=== PATIENT | female | born 1955 | race American Indian/Alaskan Native ===

== ENCOUNTER 2018-01-07 16:57 | Inpatient (IN) ==
[2018-01-07] MEDS ORDERED: methylPREDNISolone 125 MG/2 ML VIAL IVP ONE (17:04)
[2018-01-07] MEDS ORDERED: Ipratropium/Albuterol Neb 3 ML IH ONE (17:04)
--- NOTE | 2018-01-07 17:09 | Emergency Department Note ---
Disposition Clinical Impression: Acute exacerbation of chronic obstructive airways disease Disposition: Admitted As Inpatient Condition: Fair Referrals: Jourdan Nava MD [Primary Care Provider] - Forms: ED Satisfaction Letter Time of Disposition: 18:44 SOB HPI - General Chief Complaint: ED Shortness of Breath/Dyspnea Stated Complaint: TANNER Time Seen by Provider: 01/07/18 17:04 Source: patient, EMS Limitations: no limitations Nursing Notes Reviewed: Yes Vital Signs Reviewed: Yes - History of Present Illness Mrs. Montana presents from her PCP's office (Dr. Nava) for PCP concerns of pneumonia and patient concerns of worsening dyspnea. Diagnosed with pneumonia 2 -3 days ago, managed with outpatient antibiotics. Her dyspnea has worsened since, is not improved with her home inhalers. Associated with nausea, vomiting with PO intake, subjective fever. Dry cough with isolated left sharp chest pain only with cough. Dyspnea at rest, worse with light exertion. Generalized fatigue and weakness. PMH: CAD with [place] without stent, CVA. On aspirin and anticoagulant unknown to her. HTN, HLD, CHF of unknown type. DM II on oral antihyperglycemic. COPD on 2L supplemental O2 at night. Habits: Current everyday smoker. ROS: Pos: as above Neg: measured fever, chest pain unrelated to cough, diaphoresis, unusual back pain, abdominal pain, slurring of speech, facial droop, unilateral weakness/ tingling. - Related Data Home Medications Medication Instructions Recorded Confirmed Albuterol Sulfate [Proair HFA] 2 puff IH Q6HR PRN 05/17/15 01/07/18 Amlodipine [Norvasc] 5 mg PO DAILY 05/17/15 01/07/18 Aspirin Enteric Coated [Aspirin EC] 81 mg PO DAILY 05/17/15 01/07/18 Citalopram [CeleXA] 20 mg PO DAILY 05/17/15 01/07/18 Fluticasone Propionate Nasal 1 spray NS DAILY 05/17/15 01/07/18 [Flonase] Isosorbide MONOnitrate (24 HR) 60 mg PO DAILY 05/17/15 01/07/18 [Imdur] Metoprolol [Lopressor] 25 mg PO BID 05/17/15 01/07/18 Montelukast [Singulair] 10 mg PO DAILY 05/17/15 01/07/18 Potassium Chloride 20 meq PO BID 05/17/15 01/07/18 Ranitidine HCl [Zantac] 150 mg PO BID 05/17/15 01/07/18 Tiotropium [Spiriva] 18 mcg IH 0700 05/17/15 01/07/18 TraMADol [Ultram] 50 mg PO Q4HR PRN 05/17/15 01/07/18 TraZODone 50 mg PO HS 05/17/15 01/07/18 hydroCHLOROthiazide 50 mg PO DAILY 05/17/15 01/07/18 [Hydrochlorothiazide] Albuterol Neb [Proventil Neb] 2.5 mg IH Q4HR 01/07/18 01/07/18 Alogliptin Benzoate [Alogliptin] 12.5 mg PO DAILY 01/07/18 01/07/18 Budesonide/Formoterol 160/4.5 1 puff IH BIDR 01/07/18 01/07/18 [Symbicort 160/4.5] Nitroglycerin [Nitrostat] 0.4 mg SL Q5MIN 01/07/18 01/07/18 Pantoprazole Sodium [Protonix] 40 mg PO DAILY 01/07/18 01/07/18 Rosuvastatin [Crestor] 20 mg PO HS 01/07/18 01/07/18 levoFLOXacin [Levofloxacin] 500 mg PO DAILY 01/07/18 01/07/18 predniSONE [PredniSONE] 20 mg PO BID 01/07/18 01/07/18 Allergies Allergy/AdvReac Type Severity Reaction Status Date / Time Amoxicillin [From Augmentin] Allergy Vomiting Verified 01/07/18 17:05 Cefaclor [From Ceclor] Allergy Vomiting Verified 01/07/18 17:05 clavulanic acid Allergy Vomiting Verified 01/07/18 17:05 [From Augmentin] codeine Allergy Hives Verified 01/07/18 17:05 Penicillins Allergy Vomiting Verified 01/07/18 17:06 sulfamethoxazole Allergy Vomiting Verified 01/07/18 17:05 [From Bactrim] trimethoprim [From Bactrim] Allergy Vomiting Verified 01/07/18 17:05 Past Medical History - Past Medical History Medical history: Reports: asthma, CHF, COPD, CVA, hyperlipidemia, hypertension, myocardial infarction, TIA Surgical history: Reports: Psychiatric history: Reports: depression - Social History Smoking Status: Current every day smoker Smokeless Tobacco Status: No Alcohol use: Reports: none Drug use: Reports: none Physical Exam Vital Signs Reviewed General: Patient is alert, oriented, and in mild respiratory distress - accessory muscle use, 3-4 word conversational dyspnea. Head: atraumatic, normocephalic Eye: normal appearance, no scleral icterus, no conjunctival injection ENT: mucous membranes tachy, normal external ear exam Neck: normal inspection, trachea midline, full ROM Chest: normal inspection, symmetric chest rise Respiratory: Poor respiratory effort. Prolonged respiratory phase. Bilateral breath sounds are equal with diffuse coarse expiratory wheeze; no crackles or rhonchi. Cardiovascular: Regular rate and rhythm. No clicks, rubs, gallops, or murmors. Normal heart sounds. Abdomen: Obese. Bowel sounds present normoactive x-4 quadrants. Abdomen is soft , nondistended, and nontender. No guarding or rebound. Musculoskeletal: Spontaneously moving all extremities. Skin: warm, dry, intact. Neuro: Alert and oriented x4. Sensation light touch intact. Psych: Patient's affect is appropriate for situation. - General Limitations: no limitations General appearance: alert, in no apparent distress Course Course Narrative: Patient is on PO levaquin for outpatient pneumonia. Despite patient's respiratory distress, she is saturing well on room air. CXR and physical exam not concerning for pneumonia. Lab work, CXR, and physical exam not concerning for exacerbation of CHF. Working diagnosis is acute exacerbation COPD. Will provide IV steroids, duonebs , and empiric antibiotics. Patient's chart shows a vomiting reaction to ceclor. Patient notes 'that was a long time ago' but does remember she did not have any breathing, and no rash. She is agreeable to cefepime. After 9mg duonegs, patient's work of breathing has improved. She subjectively feels better. Lung sounds re-demonstrate diffuse coarse wheeze. I discussed the above with the patient and family at bedside. She is agreeable to admission. Discussed the patient with the admitting hospitalis, Erik, who agrees to accept the patient for continued evaluation and management. Chest X-Ray 01/07/18 17:05 IMPRESSION: 1. No acute cardiopulmonary disease. D/ / 01/07/2018 17:34:38 Blaze Marquis MD / [email or web address] Interpreting Provider: Blaze Marquis MD Vital Signs Temperature 98.8 F 01/07/18 16:59 Pulse Rate 71 01/07/18 16:59 Respiratory Rate 20 01/07/18 16:59 Blood Pressure 158/93 01/07/18 16:59 O2 Sat by Pulse Oximetry 94 01/07/18 16:59 Temperature 98.8 F 01/07/18 16:59 Pulse Rate 81 01/07/18 18:02 Respiratory Rate 18 01/07/18 18:02 Blood Pressure 158/93 01/07/18 18:02 O2 Sat by Pulse Oximetry 100 01/07/18 18:02 Oxygen Delivery Oxygen Delivery Nasal Cannula Shortness of Breath/Dyspnea - Lab Data Result diagrams: 01/07/18 17:12 01/07/18 17:12 Lab Results 01/07/18 01/07/18 01/07/18 Range/Units 17:12 17:12 17:12 WBC 7.2 (4.3-11.1) K/mcL RBC 4.88 (3.82-4.97) M/mcL Hgb 15.3 (11.5-15.4) g/dL Hct 46.2 H (35.3-44.9) % MCV 94.7 (83.0-100.0) fL MCH 31.4 (28.0-33.3) pg MCHC 33.1 (31.6-35.5) g/dL RDW 14.2 (11.5-14.5) % Plt Count 121 L (140-400) K/mcL MPV 10.6 (9.4-12.4) fL Immature Gran % 1.0 (0-4) % Seg Neutrophils % 54.8 % Lymphocytes % 34.3 % Monocytes % 9.5 % Eosinophils % 0.0 % Basophils % 0.4 % Neutrophils # 4.0 (1.6-8.9) K/mcL Lymphocytes # 2.5 (0.6-4.6) K/mcL Monocytes # 0.7 (0.0-1.3) K/mcL Eosinophils # 0.0 (0.0-0.6) K/mcL Basophils # 0.0 (0.0-0.2) K/mcL Reactive Lymphocytes Present A (Not Present) Platelet Estimate Slight Decrease L (Normal) Sodium 141 (136-145) mEq/L Potassium 3.4 L (3.5-5.1) mEq/L Chloride 102 (98-107) mEq/L Carbon Dioxide 33 H (23-29) mEq/L BUN 24 H (8-23) mg/dL Creatinine 1.07 (0.60-1.20) mg/dL Est GFR ( Amer) > 60 (> 60) Est GFR (Non-Af Amer) 52 L (> 60) BUN/Creatinine Ratio 22 (6-26) Glucose 174 H (70-105) mg/dL Calculated Osmolality 300 (280-300) Lactic Acid 1.8 (0.5-2.2) mmol/L Calcium 10.9 H (8.6-10.3) mg/dL Troponin I < 0.03 (< 0.04) ng/mL B-Natriuretic Peptide (Less than 100) pg/mL 01/07/18 Range/Units 17:12 WBC (4.3-11.1) K/mcL RBC (3.82-4.97) M/mcL Hgb (11.5-15.4) g/dL Hct (35.3-44.9) % MCV (83.0-100.0) fL MCH (28.0-33.3) pg MCHC (31.6-35.5) g/dL RDW (11.5-14.5) % Plt Count (140-400) K/mcL MPV (9.4-12.4) fL Immature Gran % (0-4) % Seg Neutrophils % % Lymphocytes % % Monocytes % % Eosinophils % % Basophils % % Neutrophils # (1.6-8.9) K/mcL Lymphocytes # (0.6-4.6) K/mcL Monocytes # (0.0-1.3) K/mcL Eosinophils # (0.0-0.6) K/mcL Basophils # (0.0-0.2) K/mcL Reactive Lymphocytes (Not Present) Platelet Estimate (Normal) Sodium (136-145) mEq/L Potassium (3.5-5.1) mEq/L Chloride (98-107) mEq/L Carbon Dioxide (23-29) mEq/L BUN (8-23) mg/dL Creatinine (0.60-1.20) mg/dL Est GFR ( Amer) (> 60) Est GFR (Non-Af Amer) (> 60) BUN/Creatinine Ratio (6-26) Glucose (70-105) mg/dL Calculated Osmolality (280-300) Lactic Acid (0.5-2.2) mmol/L Calcium (8.6-10.3) mg/dL Troponin I (< 0.04) ng/mL B-Natriuretic Peptide 103 H (Less than 100) pg/mL
[2018-01-07 17:29] LABS: Basophils % 0.4 %; Hematocrit 46.2 % (35.3-44.9); Hemoglobin 15.3 g/dL (11.5-15.4); Lymphocytes # 2.5 K/mcL (0.6-4.6); Lymphocytes % 34.3 %; Mean Corpuscular HGB Conc 33.1 g/dL (31.6-35.5); Mean Corpuscular Hemoglobin 31.4 pg (28.0-33.3); Mean Corpuscular Volume 94.7 fL (83.0-100.0); Mean Platelet Volume 10.6 fL (9.4-12.4); Monocytes # 0.7 K/mcL (0.0-1.3); Monocytes % 9.5 %; Platelet Count 121 K/mcL (140-400); Red Blood Count 4.88 M/mcL (3.82-4.97); Red Cell Distribution Width 14.2 % (11.5-14.5); Segmented Neutrophils % 54.8 %
--- NOTE | 2018-01-07 17:39 | Emergency Department Note ---
Disposition Clinical Impression: Acute exacerbation of chronic obstructive airways disease Disposition: Admitted As Inpatient Condition: Fair General Adult HPI - General Chief complaint: ED Shortness of Breath/Dyspnea Stated complaint: TANNER Time Seen by Provider: 01/07/18 17:04 Source: patient, EMS Limitations: no limitations - History of Present Illness Pain Scale: 0 - Related Data Home Medications Medication Instructions Recorded Confirmed Albuterol Sulfate [Proair HFA] 2 puff IH Q6HR PRN 05/17/15 01/07/18 Amlodipine [Norvasc] 5 mg PO DAILY 05/17/15 01/07/18 Aspirin Enteric Coated [Aspirin EC] 81 mg PO DAILY 05/17/15 01/07/18 Citalopram [CeleXA] 20 mg PO DAILY 05/17/15 01/07/18 Fluticasone Propionate Nasal 1 spray NS DAILY 05/17/15 01/07/18 [Flonase] Isosorbide MONOnitrate (24 HR) 60 mg PO DAILY 05/17/15 01/07/18 [Imdur] Metoprolol [Lopressor] 25 mg PO BID 05/17/15 01/07/18 Montelukast [Singulair] 10 mg PO DAILY 05/17/15 01/07/18 Potassium Chloride 20 meq PO BID 05/17/15 01/07/18 Ranitidine HCl [Zantac] 150 mg PO BID 05/17/15 01/07/18 Tiotropium [Spiriva] 18 mcg IH 0700 05/17/15 01/07/18 TraMADol [Ultram] 50 mg PO Q4HR PRN 05/17/15 01/07/18 TraZODone 50 mg PO HS 05/17/15 01/07/18 hydroCHLOROthiazide 50 mg PO DAILY 05/17/15 01/07/18 [Hydrochlorothiazide] Albuterol Neb [Proventil Neb] 2.5 mg IH Q4HR 01/07/18 01/07/18 Alogliptin Benzoate [Alogliptin] 12.5 mg PO DAILY 01/07/18 01/07/18 Budesonide/Formoterol 160/4.5 1 puff IH BIDR 01/07/18 01/07/18 [Symbicort 160/4.5] Nitroglycerin [Nitrostat] 0.4 mg SL Q5MIN 01/07/18 01/07/18 Pantoprazole Sodium [Protonix] 40 mg PO DAILY 01/07/18 01/07/18 Rosuvastatin [Crestor] 20 mg PO HS 01/07/18 01/07/18 levoFLOXacin [Levofloxacin] 500 mg PO DAILY 01/07/18 01/07/18 predniSONE [PredniSONE] 20 mg PO BID 01/07/18 01/07/18 Allergies Allergy/AdvReac Type Severity Reaction Status Date / Time Amoxicillin [From Augmentin] Allergy Vomiting Verified 01/07/18 17:05 Cefaclor [From Ceclor] Allergy Vomiting Verified 01/07/18 17:05 clavulanic acid Allergy Vomiting Verified 01/07/18 17:05 [From Augmentin] codeine Allergy Hives Verified 01/07/18 17:05 Penicillins Allergy Vomiting Verified 01/07/18 17:06 sulfamethoxazole Allergy Vomiting Verified 01/07/18 17:05 [From Bactrim] trimethoprim [From Bactrim] Allergy Vomiting Verified 01/07/18 17:05 Past Medical History - Past Medical History Medical history: Reports: asthma, CHF, COPD, CVA, hyperlipidemia, hypertension, myocardial infarction, TIA Surgical history: Reports: Psychiatric history: Reports: depression - Social History Smoking Status: Current every day smoker Smokeless Tobacco Status: No Alcohol use: Reports: none Drug use: Reports: none Physical Exam - General Limitations: no limitations General appearance: alert, in no apparent distress Course Vital Signs Temperature 98.8 F 01/07/18 16:59 Pulse Rate 71 01/07/18 16:59 Respiratory Rate 20 01/07/18 16:59 Blood Pressure 158/93 01/07/18 16:59 O2 Sat by Pulse Oximetry 94 01/07/18 16:59 Temperature 98.8 F 01/07/18 16:59 Pulse Rate 71 01/07/18 19:56 Respiratory Rate 18 01/07/18 19:56 Blood Pressure 158/93 01/07/18 19:56 O2 Sat by Pulse Oximetry 97 01/07/18 19:56 Oxygen Delivery Oxygen Delivery Room Air Medical Decision Making - Lab Data Result diagrams: 01/07/18 17:12 01/07/18 17:12 Lab Results 01/07/18 01/07/18 01/07/18 Range/Units 17:12 17:12 17:12 WBC 7.2 (4.3-11.1) K/mcL RBC 4.88 (3.82-4.97) M/mcL Hgb 15.3 (11.5-15.4) g/dL Hct 46.2 H (35.3-44.9) % MCV 94.7 (83.0-100.0) fL MCH 31.4 (28.0-33.3) pg MCHC 33.1 (31.6-35.5) g/dL RDW 14.2 (11.5-14.5) % Plt Count 121 L (140-400) K/mcL MPV 10.6 (9.4-12.4) fL Immature Gran % 1.0 (0-4) % Seg Neutrophils % 54.8 % Lymphocytes % 34.3 % Monocytes % 9.5 % Eosinophils % 0.0 % Basophils % 0.4 % Neutrophils # 4.0 (1.6-8.9) K/mcL Lymphocytes # 2.5 (0.6-4.6) K/mcL Monocytes # 0.7 (0.0-1.3) K/mcL Eosinophils # 0.0 (0.0-0.6) K/mcL Basophils # 0.0 (0.0-0.2) K/mcL Reactive Lymphocytes Present A (Not Present) Platelet Estimate Slight Decrease L (Normal) Sodium 141 (136-145) mEq/L Potassium 3.4 L (3.5-5.1) mEq/L Chloride 102 (98-107) mEq/L Carbon Dioxide 33 H (23-29) mEq/L BUN 24 H (8-23) mg/dL Creatinine 1.07 (0.60-1.20) mg/dL Est GFR ( Amer) > 60 (> 60) Est GFR (Non-Af Amer) 52 L (> 60) BUN/Creatinine Ratio 22 (6-26) Glucose 174 H (70-105) mg/dL Calculated Osmolality 300 (280-300) Lactic Acid 1.8 (0.5-2.2) mmol/L Calcium 10.9 H (8.6-10.3) mg/dL Troponin I < 0.03 (< 0.04) ng/mL B-Natriuretic Peptide (Less than 100) pg/mL 04/19/18 Range/Units 17:12 WBC (4.3-11.1) K/mcL RBC (3.82-4.97) M/mcL Hgb (11.5-15.4) g/dL Hct (35.3-44.9) % MCV (83.0-100.0) fL MCH (28.0-33.3) pg MCHC (31.6-35.5) g/dL RDW (11.5-14.5) % Plt Count (140-400) K/mcL MPV (9.4-12.4) fL Immature Gran % (0-4) % Seg Neutrophils % % Lymphocytes % % Monocytes % % Eosinophils % % Basophils % % Neutrophils # (1.6-8.9) K/mcL Lymphocytes # (0.6-4.6) K/mcL Monocytes # (0.0-1.3) K/mcL Eosinophils # (0.0-0.6) K/mcL Basophils # (0.0-0.2) K/mcL Reactive Lymphocytes (Not Present) Platelet Estimate (Normal) Sodium (136-145) mEq/L Potassium (3.5-5.1) mEq/L Chloride (98-107) mEq/L Carbon Dioxide (23-29) mEq/L BUN (8-23) mg/dL Creatinine (0.60-1.20) mg/dL Est GFR ( Amer) (> 60) Est GFR (Non-Af Amer) (> 60) BUN/Creatinine Ratio (6-26) Glucose (70-105) mg/dL Calculated Osmolality (280-300) Lactic Acid (0.5-2.2) mmol/L Calcium (8.6-10.3) mg/dL Troponin I (< 0.04) ng/mL B-Natriuretic Peptide 103 H (Less than 100) pg/mL Attestation Statement - Attestation Attestation: I examined this patient and my medical decision-making was reviewed with the PANEL SEWER/PA/Advanced Practice Nurse/Resident Physician. I agree with the documented findings, disposition and treatment plan as described except to the extent set forth below. The patient's has shortness of breath with a history of COPD and she is still smoking and does use home oxygen but only at night and on exam she is to Neck and she also does have bilateral wheezing. Chest x-ray as well as labs have been done. Patient will be treated with breathing treatment DuoNeb, IV steroids and antibiotics and be admitted to the hospital. I did speak with her as well as the stepson and stepdaughter 173 I did review the patient's EKG which shows normal sinus rhythm with rate of [address] change but no evidence of arrhythmia. This is not atrial fibrillation. The prominent P waves are consistent with COPD. 184
[2018-01-07 17:41] LABS: Platelet Estimate Slight Decrease (Normal); Reactive Lymphocytes Present (Not Present)
[2018-01-07 17:50] LABS: BUN/Creatinine Ratio 22 (6-26); Blood Urea Nitrogen 24 mg/dL (8-23); Calcium 10.9 mg/dL (8.6-10.3); Carbon Dioxide 33 mEq/L (23-29); Chloride 102 mEq/L (98-107); Glucose 174 mg/dL (70-105); Osmolality,Calculated 300 (280-300); Potassium 3.4 mEq/L (3.5-5.1); Sodium 141 mEq/L (136-145); Troponin I < 0.03 ng/mL (< 0.04); eGFR For African Americans > 60 (> 60); eGFR For Non-African Americans 52 (> 60)
[2018-01-07] MEDS ORDERED: Cefepime HCl 2,000 MG in Water for inj. (sterile) 20 ML 20 ML IVP STA (18:44)
[2018-01-07] MEDS ORDERED: Naloxone 0.4 MG/ML INJ IVP PRN (21:17)
[2018-01-07] MEDS ORDERED: traMADol 50 MG TABLET PO PRN (21:22)
--- NOTE | 2018-01-07 21:29 | Internal Med History&Physical ---
Date of Encounter: 01/07/18 Time of Encounter: 21:17 Internal Medicine - H&P: HPI Admitted From: Home Plans for Post Hospital Care: Home History of present illness: Ms. Montana is a 62 year old female history of COPD on 2 L home oxygen in the night distal pack to a smoker though trying to cut down, diabetes mellitus, hypertension came to emergency room with worsening of wheezing and shortness of breath along with cough for last 1-2 weeks. Patient was seen by primary care physician restarted orally steroid and antibiotics but failed the treatment. In emergency room initial treatment was given with loading dose of steroid and breathing treatment restarted oxygen by nasal cannula. Chest x-ray with no acute finding. ER physician called on-call hospitalists for the admission the diagnosis of COPD exacerbation with failed outpatient treatment. Nation also complained of subjective fever, chills, nausea since Thursday. She also had few episodes of diarrhea today. She denies chest pain headache dizziness abdominal pain urinary or bowel complaint. Past Med Surg Social Fam HX - Past Medical History Medical history: asthma, CHF, COPD, CVA, hyperlipidemia, hypertension, myocardial infarction, TIA Psychiatric history: depression - Past Surgical History Surgical History: - Social History Smoking Status: Current every day smoker Smokeless Tobacco Status: No Alcohol use: none Drug use: none - Family History Mother Living Status: Still Living Hx Family Respiratory Disorders: Yes Internal Medicine - H&P: Meds Albuterol Sulfate [Proair HFA] 2 puff IH Q6HR PRN 05/17/15 [History] Amlodipine [Norvasc] 5 mg PO DAILY 05/17/15 [History] Aspirin Enteric Coated [Aspirin EC] 81 mg PO DAILY 05/17/15 [History] Citalopram [CeleXA] 20 mg PO DAILY 05/17/15 [History] Fluticasone Propionate Nasal [Flonase] 1 spray NS DAILY 05/17/15 [History] Isosorbide MONOnitrate (24 HR) [Imdur] 60 mg PO DAILY 05/17/15 [History] Metoprolol [Lopressor] 25 mg PO BID 05/17/15 [History] Montelukast [Singulair] 10 mg PO DAILY 05/17/15 [History] Potassium Chloride 20 meq PO BID 05/17/15 [History] Ranitidine HCl [Zantac] 150 mg PO BID 05/17/15 [History] Tiotropium [Spiriva] 18 mcg IH 0700 05/17/15 [History] TraMADol [Ultram] 50 mg PO Q4HR PRN 05/17/15 [History] TraZODone 50 mg PO HS 05/17/15 [History] hydroCHLOROthiazide [Hydrochlorothiazide] 50 mg PO DAILY 05/17/15 [History] Albuterol Neb [Proventil Neb] 2.5 mg IH Q4HR 01/07/18 [History] Alogliptin Benzoate [Alogliptin] 12.5 mg PO DAILY 01/07/18 [History] Budesonide/Formoterol 160/4.5 [Symbicort 160/4.5] 1 puff IH BIDR 01/07/18 [ History] Nitroglycerin [Nitrostat] 0.4 mg SL Q5MIN 01/07/18 [History] Pantoprazole Sodium [Protonix] 40 mg PO DAILY 01/07/18 [History] Rosuvastatin [Crestor] 20 mg PO HS 01/07/18 [History] levoFLOXacin [Levofloxacin] 500 mg PO DAILY 01/07/18 [History] predniSONE [PredniSONE] 20 mg PO BID 01/07/18 [History] 3 Allergy/AdvReac Type Severity Reaction Status Date / Time Amoxicillin [From Augmentin] Allergy Vomiting Verified 01/07/18 17:05 Cefaclor [From Ceclor] Allergy Vomiting Verified 01/07/18 17:05 clavulanic acid Allergy Vomiting Verified 01/07/18 17:05 [From Augmentin] codeine Allergy Hives Verified 01/07/18 17:05 Penicillins Allergy Vomiting Verified 01/07/18 17:06 sulfamethoxazole Allergy Vomiting Verified 01/07/18 17:05 [From Bactrim] trimethoprim [From Bactrim] Allergy Vomiting Verified 01/07/18 17:05 All Systems PM: A 10-system review of systems was performed and is negative for pertinent findings except as documented above in the HPI. - Constitutional Vitals: Temp Pulse Resp BP Pulse Ox 98.0 F 71 18 138/82 95 01/07/18 20:29 01/07/18 20:29 01/07/18 20:29 01/07/18 20:29 01/07/18 20:29 Exam: General appearance: Mild distress due to shortness of breath, oxygen by nasal cannula, cannot complete the whole sentence easily, A&O X 3. Family at bedside Head exam: Atraumatic Eye exam: EOMI, PERRLA ENT exam: Moist oral mucosa Neck nontender, supple Respiratory exam: Bilateral expiratory wheezing Cardiovascular exam: Regular rate and rhythm, no systolic murmur Abdominal exam: Soft, nontender, nondistended, positive bowel sounds Extremities exam: No calf tenderness, no pedal edema Present: Skin-no rash, warm, dry, intact Neurological exam: Alert, awake, oriented 3, CN II-XII intact, no focal deficits. No facial droop. Normal speech. Normal gait. Internal Med - H&P Results - Labs CBC & Chem 7: 01/07/18 17:12 01/07/18 17:12 - Assessment and plan (1) Acute exacerbation of chronic obstructive airways disease Current Visit: Yes Status: Acute Assessment and plan: Failed outpatient treatment. Will start IV Solu-Medrol, IV antibiotic, oxygen supplementation, breathing treatment. Will consult take off worker if no improvement. Patient never had evaluation by take off worker, on OPD basis. (2) Diabetes mellitus Current Visit: Yes Status: Chronic Assessment and plan: Newly diagnosed as per patient. Accu-Chek and sliding scale. Diabetic diet. Qualifiers: Diabetes mellitus type: type 2 Diabetes mellitus long term care pharmacist insulin use: without long term care pharmacist use Qualified Code(s): E11.9 - Type 2 diabetes mellitus without complications (3) Hypertension Current Visit: Yes Status: Chronic Assessment and plan: Close monitoring. Continue home medicine. Qualifiers: Qualified Code(s): I10 - Essential (primary) hypertension (4) Hypercalcemia Current Visit: Yes Status: Acute Assessment and plan: Mild. no supplementation. gentle iv hydration. close monitoring. (5) DVT prophylaxis Current Visit: Yes Status: Acute Assessment and plan: SCDs - Time Spent With Patient Total time spent is greater than 50% in coordination of care (as documented) at patient's floor/unit and/or counseling patient: 25 - 35 minutes
[2018-01-07] MEDS ORDERED: Nitroglycerin 0.4 MG TAB.SUBL SL SCH (21:30)
[2018-01-07] MEDS ORDERED: Dextrose Gel 15 GM/37.5 ML TUBE PO PRN ×2 (21:37)
[2018-01-07] MEDS ORDERED: *HR* Dextrose 50 % in Water (Syg) 50 ML SYRINGE IVP PRN (21:37)
[2018-01-07] MEDS ORDERED: D5% in Water 1,000 ML IVC PRN (21:37)
[2018-01-07] MEDS: 0.9 % Sodium Chloride 1,000 ML IVC SCH (21:46)
[2018-01-07] MEDS ORDERED: Levofloxacin 500 MG/100 ML 500 MG/100 ML BAG IVPB ONE (22:00)
[2018-01-07] MEDS ORDERED: traZODone 50 MG TABLET PO SCH (22:05)
[2018-01-07] MEDS ORDERED: traZODone 50 MG TABLET PO ONE (22:13)
[2018-01-07] MEDS: Ipratropium/Albuterol Neb 3 ML IH SCH (22:14)
[2018-01-07 22:43] LABS: Adenovirus Not Detected (Not Detect); Bordetella Pertussis Not Detected (Not Detect); Chlamydophila pneumoniae Not Detected (Not Detect); Coronavirus 229E Not Detected (Not Detect); Coronavirus HKU1 Not Detected (Not Detect); Coronavirus NL63 Not Detected (Not Detect); Coronavirus OC43 Not Detected (Not Detect); Human Metapneumovirus Not Detected (Not Detect); Human Rhinovirus/Enterovirus Not Detected (Not Detect); Influenza A Subtype 2009 H1 Not Detected (Not Detect); Influenza A Untypeable Not Detected (Not Detect); Influenza B ***DETECTED*** (Not Detect); Mycoplasma pneumoniae Not Detected (Not Detect); Parainfluenza Virus 1 Not Detected (Not Detect); Parainfluenza Virus 2 Not Detected (Not Detect); Parainfluenza Virus 3 Not Detected (Not Detect); Parainfluenza Virus 4 Not Detected (Not Detect); Respiratory Syncytial Virus Not Detected (Not Detect)
[2018-01-07] MEDS: Insulin LISPRO 300 UNITS/3 ML VIAL SQ SCH (23:34)
[2018-01-07] MEDS: MethylPREDNISolone 40 MG/ML VIAL IVP SCH (23:34)
[2018-01-07] MEDS: Albuterol 2.5 MG/3 ML NEBULIZER IH SCH (23:59)
[2018-01-08] MEDS: Albuterol 2.5 MG/3 ML NEBULIZER IH SCH ×6 (04:14→22:39)
[2018-01-08] MEDS: Ipratropium/Albuterol Neb 3 ML IH SCH ×4 (04:14→22:39)
[2018-01-08] MEDS: Insulin LISPRO 300 UNITS/3 ML VIAL SQ SCH ×3 (06:19→17:24)
[2018-01-08] MEDS: MethylPREDNISolone 40 MG/ML VIAL IVP SCH ×3 (06:20→17:24)
[2018-01-08 07:07] LABS: Hemoglobin 15.1 g/dL (11.5-15.4); Mean Corpuscular HGB Conc 32.8 g/dL (31.6-35.5); Mean Corpuscular Hemoglobin 31.4 pg (28.0-33.3); Mean Corpuscular Volume 95.6 fL (83.0-100.0); Mean Platelet Volume 10.8 fL (9.4-12.4); Platelet Count 126 K/mcL (140-400); Red Blood Count 4.81 M/mcL (3.82-4.97); Red Cell Distribution Width 13.9 % (11.5-14.5)
[2018-01-08 07:22] LABS: BUN/Creatinine Ratio 23 (6-26); Blood Urea Nitrogen 23 mg/dL (8-23); Calcium 10.4 mg/dL (8.6-10.3); Carbon Dioxide 29 mEq/L (23-29); Chloride 101 mEq/L (98-107); Glucose 209 mg/dL (70-105); Osmolality,Calculated 298 (280-300); Potassium 3.7 mEq/L (3.5-5.1); Sodium 139 mEq/L (136-145); eGFR For African Americans > 60 (> 60); eGFR For Non-African Americans 57 (> 60)
[2018-01-08 07:52] LABS: Lymphocytes # 1.8 K/mcL (0.6-4.6); Monocytes # 0.1 K/mcL (0.0-1.3); Neutrophils # 3.6 K/mcL (1.6-8.9)
[2018-01-08 07:53] LABS: Platelet Estimate Slight Decrease (Normal); Reactive Lymphocytes Present (Not Present)
[2018-01-08] MEDS ORDERED: amLODIPine 5 MG TABLET PO SCH (09:00)
[2018-01-08] MEDS ORDERED: hydroCHLOROthiazide 25 MG TABLET PO SCH (09:00)
[2018-01-08] MEDS: 0.9 % Sodium Chloride 1,000 ML IVC SCH (09:29)
[2018-01-08] MEDS: Nicotine 14 MG PATCH.TD24 TD SCH (09:30)
[2018-01-08] MEDS: Famotidine 20 MG TABLET PO SCH ×2 (09:31→20:03)
[2018-01-08] MEDS: Aspirin Enteric Coated 81 MG Tablet PO SCH (09:31)
[2018-01-08] MEDS: (Alogliptin Benzoate [Alogliptin] 12.5 MG) PO SCH (09:32)
[2018-01-08] MEDS: Fluticasone Propionate Nasal 50 MCG/SPRAY BOTTLE NS SCH (09:35)
[2018-01-08] MEDS: Isosorbide MONOnitrate (24 HR) 60 MG TAB.ER.24H PO SCH (09:36)
[2018-01-08] MEDS: Oseltamivir Phosphate 30 MG CAPSULE PO SCH ×2 (13:39→20:03)
--- NOTE | 2018-01-08 15:30 | Electrocardiograph Report ---
[address] [place] [address] Test Date: 2018-01-07 Pat Name: Jey Montana Department: 104 Room: 3B55 Gender: F Autopsy Pathologist: : 1955 Requested By: Lemuel Dotson Order Number: [id number] Reading MD: Alessia Leavitt Measurements Intervals Sharon Rate: 78 P: ND: 0 QRS: 53 QRSD: 82 T: 68 QT: 361 QTc: 394 Interpretive Statements NORMAL SINUS RHYTHM WITH SHORT ND INTERVAL POSSIBLE RIGHT ATRIAL ENLARGEMENT ARTIFACT Electronically Signed On 01-08-2018 15:28:12 EDT by Alessia Leavitt
--- NOTE | 2018-01-08 15:43 | Internal Med Progress Note ---
Date of Encounter: 01/08/18 Time of Encounter: 15:43 - Assessment and plan (1) Acute exacerbation of chronic obstructive airways disease Current Visit: Yes Status: Acute Assessment and plan: Hematocrit with shortness of breath, cough and wheezing. Recently treated with ATB and failed outpatient. CXR without evidence of pneumonia. Continue IV Levaquin, steroids, bronchodilators. (2) Influenza B Current Visit: Yes Status: Acute Assessment and plan: resp PCR positive for influenza B. Start Tamiflu. (3) Diabetes mellitus Current Visit: Yes Status: Chronic Assessment and plan: Patient reportedly recently diagnosed as new diabetic however she is not currently being treated. Add Accu-Cheks, SSI. Monitor blood sugar and titrate PRN. Hgb A1c pending Qualifiers: Diabetes mellitus type: type 2 Diabetes mellitus detention insulin use: without termination clerk use Qualified Code(s): E11.9 - Type 2 diabetes mellitus without complications (4) Hypertension Current Visit: Yes Status: Chronic Assessment and plan: per hx. BP soft/borderline. Stop home amlodipine/HCTZ. Hold parameters added to BB. Monitor blood pressure and titrate PRN Qualifiers: Qualified Code(s): I10 - Essential (primary) hypertension (5) DVT prophylaxis Current Visit: Yes Status: Acute Assessment and plan: SCDs - Time Spent With Patient Total time spent is greater than 50% in coordination of care (as documented) at patient's floor/unit and/or counseling patient: - Subjective Interval history: Seen and examined at bedside. Patient is new to me, information obtained from chart review and patient report. Patient says she does not feel well today still complaining of shortness of breath and general weakness malaise. No chest pain. - Constitutional Vitals: Temp Pulse Resp BP Pulse Ox 98.6 F 60 16 97/53 94 01/08/18 11:07 01/08/18 11:07 01/08/18 15:28 01/08/18 15:28 01/08/18 15:28 General appearance: Present: A&O X 3, no acute distress - Head Head exam: Present: atraumatic, normocephalic - Eye Eye exam: Present: PERRL, conjuntiva pink, sclera anicteric Pupils: Present: PERRL - Neck Neck exam general surgery: Present: supple, trachea midline. Absent: lymphadenopathy - Respiratory Respiratory exam: Present: CTAB, rhonchi, wheezes. Absent: accessory muscle use , rales - Cardiovascular Cardiovascular exam: Present: RRR, +S1, +S2. Absent: diastolic murmur, gallop, rubs, systolic murmur - GI/Abdominal GI/Abdominal exam: Present: normal bowel sounds, soft, no peritoneal signs. Absent: distended, tenderness - Extremities Exam Extremities exam: Present: warm, radial pulses palpable and symmetrical. Absent : calf tenderness, cyanotic, pedal edema - Neurological Exam Neurological exam: Present: CN II-XII intact, oriented X3, no focal deficits. Absent: pronater drift, facial droop, speech deficit - Skin Skin exam: Present: dry, intact Internal Medicine: Result - Labs CBC & Chem 7: 01/08/18 06:10 01/08/18 06:10 Labs: Short CBC 01/08/18 Range/Units 06:10 WBC 5.5 (4.3-11.1) K/mcL Hgb 15.1 (11.5-15.4) g/dL Hct 46.0 H (35.3-44.9) % Plt Count 126 L (140-400) K/mcL Neutrophils # 3.6 (1.6-8.9) K/mcL BMP 01/08/18 06:10 Sodium 139 Potassium 3.7 Chloride 101 Carbon Dioxide 29 BUN 23 Creatinine 1.00 Glucose 209 H Calcium 10.4 H Consult Discharge Plan - Plan Referrals: Jourdan Nava MD [Primary Care Provider] -
[2018-01-08] MEDS: traZODone 50 MG TABLET PO SCH (20:03)
[2018-01-08] MEDS: Levofloxacin 250 MG/50 ML 250 MG/50 ML BAG IVPB SCH (20:04)
[2018-01-08] MEDS ORDERED: Levofloxacin 250 MG/50 ML 250 MG/50 ML BAG IVPB SCH (21:00)
[2018-01-08] MEDS ORDERED: Nitroglycerin 0.4 MG TAB.SUBL SL PRN (21:14)
[2018-01-09] MEDS: Insulin LISPRO 300 UNITS/3 ML VIAL SQ SCH ×4 (00:35→18:05)
[2018-01-09] MEDS: MethylPREDNISolone 40 MG/ML VIAL IVP SCH ×4 (00:35→18:05)
[2018-01-09] MEDS: 0.9 % Sodium Chloride 1,000 ML IVC SCH ×2 (00:36→13:52)
[2018-01-09] MEDS: Albuterol 2.5 MG/3 ML NEBULIZER IH SCH ×6 (04:23→22:51)
[2018-01-09] MEDS: Ipratropium/Albuterol Neb 3 ML IH SCH ×4 (05:28→22:47)
[2018-01-09 05:43] LABS: Hematocrit 44.8 % (35.3-44.9); Hemoglobin 14.8 g/dL (11.5-15.4); Mean Corpuscular Hemoglobin 32.2 pg (28.0-33.3); Mean Corpuscular Volume 97.6 fL (83.0-100.0); Mean Platelet Volume 11.7 fL (9.4-12.4); Platelet Count 112 K/mcL (140-400); Red Blood Count 4.59 M/mcL (3.82-4.97); Red Cell Distribution Width 14.1 % (11.5-14.5)
[2018-01-09 06:01] LABS: BUN/Creatinine Ratio 25 (6-26); Blood Urea Nitrogen 26 mg/dL (8-23); Calcium 10.3 mg/dL (8.6-10.3); Carbon Dioxide 29 mEq/L (23-29); Chloride 105 mEq/L (98-107); Glucose 194 mg/dL (70-105); Osmolality,Calculated 300 (280-300); Potassium 3.9 mEq/L (3.5-5.1); Sodium 140 mEq/L (136-145); eGFR For African Americans > 60 (> 60); eGFR For Non-African Americans 55 (> 60)
[2018-01-09] MEDS: Nicotine 14 MG PATCH.TD24 TD SCH (08:29)
[2018-01-09] MEDS: Aspirin Enteric Coated 81 MG Tablet PO SCH (08:31)
[2018-01-09] MEDS: Fluticasone Propionate Nasal 50 MCG/SPRAY BOTTLE NS SCH (08:31)
[2018-01-09] MEDS: Famotidine 20 MG TABLET PO SCH ×2 (08:32→21:11)
[2018-01-09] MEDS: Isosorbide MONOnitrate (24 HR) 60 MG TAB.ER.24H PO SCH (08:32)
[2018-01-09] MEDS: Oseltamivir Phosphate 30 MG CAPSULE PO SCH ×2 (08:32→21:12)
[2018-01-09] MEDS: (Alogliptin Benzoate [Alogliptin] 12.5 MG) PO SCH (08:34)
--- NOTE | 2018-01-09 16:38 | Internal Med Progress Note ---
Date of Encounter: 01/09/18 Time of Encounter: 16:36 - Assessment and plan (1) Acute exacerbation of chronic obstructive airways disease Current Visit: Yes Status: Acute Assessment and plan: Hematocrit with shortness of breath, cough and wheezing. Recently treated with ATB and failed outpatient. CXR without evidence of pneumonia. Continue IV Levaquin, steroids, bronchodilators. Add PRN robitussin (2) Influenza B Current Visit: Yes Status: Acute Assessment and plan: resp PCR positive for influenza B. Start Tamiflu. (3) Diabetes mellitus Current Visit: Yes Status: Chronic Assessment and plan: Patient reportedly recently diagnosed as new diabetic however she is not currently being treated. Add Accu-Cheks, SSI. Monitor blood sugar and titrate PRN. Hgb A1c pending Qualifiers: Diabetes mellitus type: type 2 Diabetes mellitus retirement insulin use: without watermelon harvesting supervisor use Qualified Code(s): E11.9 - Type 2 diabetes mellitus without complications (4) Hypertension Current Visit: Yes Status: Chronic Assessment and plan: per hx. BP soft/borderline. Stop home amlodipine/HCTZ. Hold parameters added to BB. Monitor blood pressure and titrate PRN Qualifiers: Qualified Code(s): I10 - Essential (primary) hypertension (5) DVT prophylaxis Current Visit: Yes Status: Acute Assessment and plan: SCDs - Time Spent With Patient Total time spent is greater than 50% in coordination of care (as documented) at patient's floor/unit and/or counseling patient: - Subjective Interval history: Seen and examined at bedside; laying in bed. Says she does not feel well; still complaining of generalized weakness and malaise. Has nonproductive cough and wheezing. No fevers. She does not feel she is able to go home today. - Constitutional Vitals: Temp Pulse Resp BP Pulse Ox 97.8 F 84 18 138/82 91 01/09/18 12:02 01/09/18 12:02 01/09/18 12:02 01/09/18 12:02 01/09/18 12:02 General appearance: Present: A&O X 3, no acute distress - Head Head exam: Present: atraumatic, normocephalic - Eye Eye exam: Present: PERRL, conjuntiva pink, sclera anicteric Pupils: Present: PERRL - Neck Neck exam general surgery: Present: supple, trachea midline. Absent: lymphadenopathy - Respiratory Respiratory exam: Present: CTAB. Absent: accessory muscle use, rales, rhonchi, wheezes - Cardiovascular Cardiovascular exam: Present: RRR, +S1, +S2. Absent: diastolic murmur, gallop, rubs, systolic murmur - GI/Abdominal GI/Abdominal exam: Present: normal bowel sounds, soft, no peritoneal signs. Absent: distended, tenderness - Extremities Exam Extremities exam: Present: warm, radial pulses palpable and symmetrical. Absent : calf tenderness, cyanotic, pedal edema - Neurological Exam Neurological exam: Present: CN II-XII intact, oriented X3, no focal deficits. Absent: pronater drift, facial droop, speech deficit - Skin Skin exam: Present: dry, intact Internal Medicine: Result - Labs CBC & Chem 7: 01/09/18 04:51 01/09/18 04:51 Labs: Short CBC 01/09/18 Range/Units 04:51 WBC 9.3 D (4.3-11.1) K/mcL Hgb 14.8 (11.5-15.4) g/dL Hct 44.8 (35.3-44.9) % Plt Count 112 L (140-400) K/mcL [facility] 01/09/18 04:51 Sodium 140 Potassium 3.9 Chloride 105 Carbon Dioxide 29 BUN 26 H Creatinine 1.02 Glucose 194 H Calcium 10.3 Consult Discharge Plan - Plan Referrals: Jourdan Nava MD [Primary Care Provider] -
[2018-01-09] MEDS ORDERED: GuaiFENesin Liq 200 MG/10 ML UDC GTUBE PRN (16:39)
[2018-01-09] MEDS: traZODone 50 MG TABLET PO SCH (21:11)
[2018-01-09] MEDS: Levofloxacin 250 MG/50 ML 250 MG/50 ML BAG IVPB SCH (21:12)
[2018-01-10] MEDS: MethylPREDNISolone 40 MG/ML VIAL IVP SCH ×2 (01:11→06:27)
[2018-01-10] MEDS: Insulin LISPRO 300 UNITS/3 ML VIAL SQ SCH ×2 (01:11→06:27)
[2018-01-10] MEDS: Albuterol 2.5 MG/3 ML NEBULIZER IH SCH ×3 (04:31→10:38)
[2018-01-10] MEDS: Ipratropium/Albuterol Neb 3 ML IH SCH ×2 (04:31→10:38)
[2018-01-10 05:10] LABS: Hemoglobin 14.1 g/dL (11.5-15.4); Mean Corpuscular HGB Conc 33.6 g/dL (31.6-35.5); Mean Corpuscular Hemoglobin 31.7 pg (28.0-33.3); Mean Corpuscular Volume 94.4 fL (83.0-100.0); Mean Platelet Volume 10.7 fL (9.4-12.4); Platelet Count 139 K/mcL (140-400); Red Blood Count 4.45 M/mcL (3.82-4.97)
[2018-01-10 05:26] LABS: BUN/Creatinine Ratio 29 (6-26); Blood Urea Nitrogen 25 mg/dL (8-23); Calcium 10.2 mg/dL (8.6-10.3); Carbon Dioxide 30 mEq/L (23-29); Chloride 106 mEq/L (98-107); Glucose 193 mg/dL (70-105); Osmolality,Calculated 300 (280-300); Sodium 140 mEq/L (136-145); eGFR For African Americans > 60 (> 60); eGFR For Non-African Americans > 60 (> 60)
[2018-01-10 07:21] VITALS: BP 156/88
[2018-01-10] MEDS: Famotidine 20 MG TABLET PO SCH (08:54)
[2018-01-10] MEDS: Nicotine 14 MG PATCH.TD24 TD SCH (08:54)
[2018-01-10] MEDS: Fluticasone Propionate Nasal 50 MCG/SPRAY BOTTLE NS SCH (08:54)
[2018-01-10] MEDS: Isosorbide MONOnitrate (24 HR) 60 MG TAB.ER.24H PO SCH (08:55)
[2018-01-10] MEDS: Aspirin Enteric Coated 81 MG Tablet PO SCH (08:55)
[2018-01-10] MEDS: Oseltamivir Phosphate 30 MG CAPSULE PO SCH (08:55)
[2018-01-10] MEDS: (Alogliptin Benzoate [Alogliptin] 12.5 MG) PO SCH (08:55)
--- NOTE | 2018-01-10 10:17 | Discharge Summary ---
- NOTES TO OUTPATIENT PROVIDER Notes to Outpatient Provider: Recommend follow-up within 7-10 days from discharge Orders not resulted at time of discharge: Pending orders 01/11/18 04:00 BMP [Basic Metabolic Panel] AM 0400 Complete Blood Count w/o Diff [HEME] AM 0400 01/12/18 04:00 BMP [Basic Metabolic Panel] AM 0400 Complete Blood Count w/o Diff [HEME] AM 0400 01/13/18 04:00 BMP [Basic Metabolic Panel] AM 0400 Complete Blood Count w/o Diff [HEME] AM 0400 Date of Encounter: 01/10/18 Time of Encounter: 10:07 - Discharge Diagnosis (1) Acute exacerbation of chronic obstructive airways disease Priority: Primary Status: Acute Comments: Symptomatic with shortness of breath, cough and wheezing. Has known COPD on at HS oxygen at home. Current smoker; cessation advised. Recently treated with ATB and failed outpatient. CXR without evidence of pneumonia. Sx's improved with IV Levaquin, steroids, bronchodilators. Discharge home on azithromycin for anti-inflammatory properties, steroid taper, bronchodilators and home inhalers. Recommend follow-up with PCP within 7-10 days. (2) Influenza B Priority: Primary Status: Acute Comments: resp PCR positive for influenza B. Cont Tamiflu (total course of 5 days). (3) Hypertension Priority: Primary Status: Chronic Comments: per hx. BP variable but controlled. Cont home BP medications Qualifiers: Qualified Code(s): I10 - Essential (primary) hypertension (4) Diabetes mellitus Priority: Primary Status: Acute Comments: per hx. Blood sugars elevated due to steroids. Continue home diabetes medication regimen. Qualifiers: Diabetes mellitus type: type 2 Diabetes mellitus care home insulin use: without care home use Diabetes mellitus complication status: without complication Qualified Code(s): E11.9 - Type 2 diabetes mellitus without complications (5) CAD (coronary artery disease) Priority: Secondary Status: Chronic Comments: per hx. asymptomatic, denied chest pain. Continue home ASA, BB, statin, nitrate. Qualifiers: Coronary Disease-Associated Artery/Lesion type: [place] artery [place] vs. transplanted heart: [place] heart Associated angina: without angina Qualified Code(s): I25.10 - Atherosclerotic heart disease of [place] coronary artery without angina pectoris (6) Tobacco abuse Priority: Primary Status: Acute Comments: Current smoker; cessation advised. Hospital course: Please see assessment and plan for hospital course Discharge discussed with: patient (Seen and examined at bedside. Still with some shortness of breath and wheezing but she feels overall improved and is requesting to be discharged today. No fevers or chills. Has nonproductive cough. Denies chest pain. Strongly advised smoking cessation. ) - Time Spent with Patient Total time spent providing and/or coordinating discharge services: - Discharge Medications Prescriptions: Azithromycin [Azithromycin 6-Tab Pack] 250 mg PO PER PKG DI #6 tab Nicotine Patch [Nicoderm] 14 mg TD DAILY #30 patch.td24 Oseltamivir Phosphate [Tamiflu] 30 mg PO BID #5 capsule predniSONE [PredniSONE] See Taper PO DAILY #40 tablet Home Medications: Albuterol Sulfate [Albuterol Inhaler] 2 puff IH Q6HR PRN 05/17/15 [History] Amlodipine [Norvasc] 5 mg PO DAILY 05/17/15 [History] Aspirin Enteric Coated [Aspirin EC] 81 mg PO DAILY 05/17/15 [History] Citalopram [CeleXA] 20 mg PO DAILY 05/17/15 [History] Fluticasone Propionate Nasal [Flonase] 1 spray NS DAILY 05/17/15 [History] Isosorbide MONOnitrate (24 HR) [Imdur] 60 mg PO DAILY 05/17/15 [History] Metoprolol [Lopressor] 25 mg PO BID 05/17/15 [History] Montelukast [Singulair] 10 mg PO DAILY 05/17/15 [History] Potassium Chloride 20 meq PO BID 05/17/15 [History] Ranitidine HCl [Zantac] 150 mg PO BID 05/17/15 [History] Tiotropium [Spiriva] 18 mcg IH 0700 05/17/15 [History] TraMADol [Ultram] 50 mg PO Q4HR PRN 05/17/15 [History] TraZODone 50 mg PO HS 05/17/15 [History] hydroCHLOROthiazide [Hydrochlorothiazide] 50 mg PO DAILY 05/17/15 [History] Albuterol Neb [Proventil Neb] 2.5 mg IH Q4HR 01/07/18 [History] Alogliptin Benzoate [Alogliptin] 12.5 mg PO DAILY 01/07/18 [History] Budesonide/Formoterol 160/4.5 [Symbicort 160/4.5] 1 puff IH BIDR 01/07/18 [ History] Nitroglycerin [Nitrostat] 0.4 mg SL Q5MIN 01/07/18 [History] Pantoprazole Sodium [Protonix] 40 mg PO DAILY 01/07/18 [History] Rosuvastatin [Crestor] 20 mg PO HS 01/07/18 [History] Azithromycin [Azithromycin 6-Tab Pack] 250 mg PO PER PKG DI #6 tab 01/10/18 [Rx] Nicotine Patch [Nicoderm] 14 mg TD DAILY #30 patch.td24 01/10/18 [Rx] Oseltamivir Phosphate [Tamiflu] 30 mg PO BID #5 capsule 01/10/18 [Rx] predniSONE [PredniSONE] See Taper PO DAILY #40 tablet 01/10/18 [Rx] Allergies/Adverse Reactions: 3 Allergy/AdvReac Type Severity Reaction Status Date / Time Amoxicillin [From Augmentin] Allergy Vomiting Verified 01/07/18 17:05 Cefaclor [From Ceclor] Allergy Vomiting Verified 01/07/18 17:05 clavulanic acid Allergy Vomiting Verified 01/07/18 17:05 [From Augmentin] codeine Allergy Hives Verified 01/07/18 17:05 Penicillins Allergy Vomiting Verified 01/07/18 17:06 sulfamethoxazole Allergy Vomiting Verified 01/07/18 17:05 [From Bactrim] trimethoprim [From Bactrim] Allergy Vomiting Verified 01/07/18 17:05 Date of admission: 01/07/18 21:17 Primary care physician: Jourdan Nava MD Consults: 01/07/18 21:21 Consult to Nurse Navigator [CONS] Routine Comment: Discharging clinician: Mechelle Benavides Anticipated date of discharge: 01/10/18 - Constitutional Vitals: Temp Pulse Resp BP Pulse Ox 97.8 F 67 17 156/88 94 01/10/18 07:20 01/10/18 07:20 01/10/18 07:20 01/10/18 07:20 01/10/18 07:20 General appearance: Present: A&O X 3, no acute distress - Head Head exam: Present: atraumatic, normocephalic - Eye Eye exam: Present: PERRL, conjuntiva pink, sclera anicteric Pupils: Present: PERRL - Neck Neck exam general surgery: Present: supple, trachea midline. Absent: lymphadenopathy - Respiratory Respiratory exam: Present: CTAB, wheezes. Absent: accessory muscle use, rales, rhonchi - Cardiovascular Cardiovascular exam: Present: RRR, +S1, +S2. Absent: diastolic murmur, gallop, rubs, systolic murmur - GI/Abdominal GI/Abdominal exam: Present: normal bowel sounds, soft, no peritoneal signs. Absent: distended, tenderness - Extremities Exam Extremities exam: Present: warm, radial pulses palpable and symmetrical. Absent : calf tenderness, cyanotic, pedal edema - Neurological Exam Neurological exam: Present: CN II-XII intact, oriented X3, no focal deficits. Absent: pronater drift, facial droop, speech deficit - Skin Skin exam: Present: dry, intact - Patient Status Disposition: Home, Self-Care Condition: Good Functional capacity at discharge: independent ambulation Overall status at discharge: patient is progressing back to baseline - Discharge Instructions Instructions: Chronic Obstructive Pulmonary Disease (DC), Oseltamivir (By mouth ), Azithromycin (By mouth), Prednisone (By mouth), How to Stop Smoking (DC), Influenza (DC) Follow Up With: Jourdan Nava MD [Primary Care Provider] - (Please call your primary care doctor within one week for a follow-up appointment) - Diet and Activity Activity: increase activity as tolerated Diet: diabetic diet, low fat, low cholesterol
== END 2018-01-10 11:30 | disposition home or self-care (01) | DRG 140 ==
LOC: EMEROO 16:57 → 3BNU 16:57
PROVIDERS: ADMIT Nurse Practitioner; ATTEND Nurse Practitioner

== ENCOUNTER 2019-10-28 11:14 | Inpatient (IN) ==
[2019-10-28] MEDS ORDERED: Ipratropium/Albuterol Neb 3 ML IH ONE (11:29)
[2019-10-28] MEDS ORDERED: methylPREDNISolone 125 MG/2 ML VIAL IVP ONE (11:29)
[2019-10-28] MEDS ORDERED: Albuterol 2.5 MG/3 ML NEBULIZER IH ONE (11:29)
[2019-10-28 12:02] LABS: Basophils % 0.5 %; Eosinophils # 0.1 K/mcL (0.0-0.6); Eosinophils % 1.2 %; Hematocrit 38.3 % (35.3-44.9); Hemoglobin 12.6 g/dL (11.5-15.4); Immature Granulocytes % 0.9 % (0-4); Lymphocytes # 1.1 K/mcL (0.6-4.6); Lymphocytes % 16.7 %; Mean Corpuscular HGB Conc 32.9 g/dL (31.6-35.5); Mean Corpuscular Volume 100.3 fL (83.0-100.0); Mean Platelet Volume 9.8 fL (9.4-12.4); Monocytes # 0.6 K/mcL (0.0-1.3); Monocytes % 9.7 %; Neutrophils # 4.7 K/mcL (1.6-8.9); Platelet Count 195 K/mcL (140-400); Red Blood Count 3.82 M/mcL (3.82-4.97); Red Cell Distribution Width 18.2 % (11.5-14.5); White Blood Count 6.6 K/mcL (4.3-11.1)
[2019-10-28 12:08] LABS: INR 1.2; Prothrombin Time 13.5 Seconds (9.4-12.1)
[2019-10-28 12:11] LABS: Activated Partial Thrombo Time 44.3 Seconds (26.0-36.0)
[2019-10-28 12:32] LABS: Alanine Aminotransferase 32 Units/L (7-52); Albumin 4.4 g/dL (3.5-5.7); Alkaline Phosphatase 89 Units/L (34-104); Aspartate Amino Transferase 46 Units/L (13-39); BUN/Creatinine Ratio 8 (6-26); Bilirubin,Direct 0.1 mg/dL (0.0-0.2); Bilirubin,Indirect 0.5 mg/dL (0.0-1.0); Bilirubin,Total 0.6 mg/dL (0.3-1.0); Blood Urea Nitrogen 13 mg/dL (8-23); Calcium 11.2 mg/dL (8.6-10.3); Carbon Dioxide 35 mEq/L (23-29); Chloride 94 mEq/L (98-107); Globulin 4.5 g/dL (2.4-3.5); Glucose 124 mg/dL (70-105); Osmolality,Calculated 292 (280-300); Potassium 3.2 mEq/L (3.5-5.1); Sodium 140 mEq/L (136-145); Total Protein 8.9 g/dL (6.4-8.9); Troponin I < 0.03 ng/mL (< 0.04); eGFR For African Americans 36 (> 60); eGFR For Non-African Americans 30 (> 60)
[2019-10-28] MEDS ORDERED: Potassium Chloride Elixir 20 MEQ/15 ML UDC PO ONE (12:34)
[2019-10-28] MEDS ORDERED: Doxycycline 100 MG in 0.9 % Sodium Chloride Mini Bag 100 ML IVPB ONE (12:40)
[2019-10-28] MEDS ORDERED: Ondansetron 4 MG/2 ML VIAL IVP PRN (13:20)
[2019-10-28] MEDS ORDERED: Naloxone 0.4 MG/ML INJ IVP PRN (13:20)
[2019-10-28] MEDS ORDERED: Mag Hydrox/Al Hydrox/Simeth 30 ML UDC PO PRN (13:20)
[2019-10-28] MEDS ORDERED: Acetaminophen 325 MG TABLET PO PRN (13:20)
[2019-10-28] MEDS ORDERED: MOM Conc 10 ML UD.LIQ PO PRN (13:20)
[2019-10-28] MEDS ORDERED: *HR* Promethazine 25 MG/ML VIAL IVP PRN (13:20)
[2019-10-28] MEDS ORDERED: Ipratropium/Albuterol Neb 3 ML IH PRN (13:25)
[2019-10-28] MEDS ORDERED: D5% in Water 1,000 ML IVC PRN (13:30)
[2019-10-28] MEDS ORDERED: *HR* Dextrose 50 % in Water (Syg) 50 ML SYRINGE IVP PRN (13:30)
[2019-10-28] MEDS ORDERED: Dextrose Gel 15 GM/37.5 ML TUBE PO PRN ×2 (13:30)
[2019-10-28 14:33] LABS: Thyroid Stimulating Hormone 85.909 mcIU/mL (0.340-5.600)
[2019-10-28 14:58] LABS: Folate > 22.3 ng/mL (3.0-16.0); Vitamin B12 649 pg/mL (250-1100); Vitamin D 25 Hydroxy 27 ng/mL (30-80)
[2019-10-28] MEDS ORDERED: Nitroglycerin 0.4 MG TAB.SUBL SL SCH (15:15)
[2019-10-28] MEDS: 0.9 % Sodium Chloride 1,000 ML IVC SCH (15:25)
[2019-10-28] MEDS: Azithromycin 500 MG in 0.9 % Sodium Chloride 250 ML IVPB SCH (15:26)
[2019-10-28] MEDS: Ipratropium/Albuterol Neb 3 ML IH SCH ×3 (15:36→23:26)
[2019-10-28] MEDS: Budesonide/Formoterol 160/4.5 1 PUFF INH IH SCH ×2 (15:36→20:29)
[2019-10-28] MEDS: MethylPREDNISolone 40 MG/ML VIAL IVP SCH (17:12)
[2019-10-28] MEDS: *HR* Heparin 5,000 UNIT/ML VIAL SQ SCH (17:17)
[2019-10-28] MEDS: Insulin LISPRO 300 UNITS/3 ML VIAL SQ SCH ×2 (17:20→20:43)
[2019-10-28] MEDS: Famotidine 20 MG TABLET PO SCH (20:44)
[2019-10-28] MEDS: traZODone 50 MG TABLET PO SCH (20:44)
[2019-10-29] MEDS: MethylPREDNISolone 40 MG/ML VIAL IVP SCH ×4 (00:01→23:35)
[2019-10-29 00:49] LABS: Basophils % 0.4 %; Hematocrit 35.6 % (35.3-44.9); Immature Granulocytes % 3.9 % (0-4); Lymphocytes # 0.7 K/mcL (0.6-4.6); Mean Corpuscular HGB Conc 30.9 g/dL (31.6-35.5); Mean Corpuscular Hemoglobin 32.4 pg (28.0-33.3); Mean Corpuscular Volume 104.7 fL (83.0-100.0); Monocytes # 0.2 K/mcL (0.0-1.3); Neutrophils # 4.5 K/mcL (1.6-8.9); Platelet Count 162 K/mcL (140-400); Segmented Neutrophils % 80.7 %; White Blood Count 5.6 K/mcL (4.3-11.1)
[2019-10-29 01:07] LABS: Potassium 3.7 mEq/L (3.5-5.1)
[2019-10-29] MEDS: 0.9 % Sodium Chloride 1,000 ML IVC SCH (01:37)
[2019-10-29 01:56] LABS: ABG Base Excess 4 mEq/L (-2 to 3); ABG HCO3 34 mEq/L (21-27); ABG Oxygen Saturation 89 % (95-98); ABG PCO2 80 mmHg (35-45); ABG PH 7.24 pH Units (7.32-7.45); ABG PO2 70 mmHg (85-104); ABG TCO2 37 mEq/L (20-26)
[2019-10-29] MEDS: Ipratropium/Albuterol Neb 3 ML IH SCH ×5 (04:26→19:57)
[2019-10-29 05:12] LABS: ABG Base Excess 4 mEq/L (-2 to 3); ABG HCO3 31 mEq/L (21-27); ABG Oxygen Saturation 96 % (95-98); ABG PCO2 61 mmHg (35-45); ABG PH 7.32 pH Units (7.32-7.45); ABG PO2 93 mmHg (85-104); ABG TCO2 33 mEq/L (20-26); Blood Gas VT 400 cc
[2019-10-29] MEDS: *HR* Heparin 5,000 UNIT/ML VIAL SQ SCH ×2 (05:33→17:42)
[2019-10-29 07:14] LABS: Adenovirus Not Detected (Not Detect); Bordetella Pertussis Not Detected (Not Detect); Chlamydophila pneumoniae Not Detected (Not Detect); Coronavirus 229E Not Detected (Not Detect); Coronavirus HKU1 Not Detected (Not Detect); Coronavirus NL63 Not Detected (Not Detect); Coronavirus OC43 Not Detected (Not Detect); Human Metapneumovirus Not Detected (Not Detect); Human Rhinovirus/Enterovirus Not Detected (Not Detect); Influenza B Not Detected (Not Detect); Mycoplasma pneumoniae Not Detected (Not Detect); Parainfluenza Virus 1 Not Detected (Not Detect); Parainfluenza Virus 2 Not Detected (Not Detect); Parainfluenza Virus 3 Not Detected (Not Detect); Parainfluenza Virus 4 Not Detected (Not Detect); Respiratory Syncytial Virus Not Detected (Not Detect)
[2019-10-29 07:18] LABS: Influenza A Subtype 2009 H1 DETECTED (Not Detect)
[2019-10-29] MEDS: Budesonide/Formoterol 160/4.5 1 PUFF INH IH SCH ×2 (07:32→19:57)
[2019-10-29] MEDS: Tiotropium 18 MCG inhalation IH SCH (07:35)
[2019-10-29] MEDS: Isosorbide MONOnitrate (24 HR) 60 MG TAB.ER.24H PO SCH (08:50)
[2019-10-29] MEDS: amLODIPine 5 MG TABLET PO SCH (08:51)
[2019-10-29] MEDS: Aspirin Enteric Coated 81 MG Tablet PO SCH (08:51)
[2019-10-29] MEDS: Famotidine 20 MG TABLET PO SCH ×2 (08:52→19:42)
[2019-10-29] MEDS: Nicotine 14 MG PATCH.TD24 TD SCH (08:52)
[2019-10-29] MEDS: Insulin LISPRO 300 UNITS/3 ML VIAL SQ SCH ×4 (08:53→19:43)
[2019-10-29] MEDS: Fluticasone Propionate Nasal 50 MCG/SPRAY BOTTLE NS SCH (09:04)
[2019-10-29 10:42] LABS: ABG Base Excess 5 mEq/L (-2 to 3); ABG HCO3 34 mEq/L (21-27); ABG Oxygen Saturation 96 % (95-98); ABG PCO2 70 mmHg (35-45); ABG PH 7.29 pH Units (7.32-7.45); ABG PO2 95 mmHg (85-104); ABG TCO2 36 mEq/L (20-26)
[2019-10-29] MEDS: Azithromycin 500 MG in 0.9 % Sodium Chloride 250 ML IVPB SCH (13:55)
[2019-10-29] MEDS: traZODone 50 MG TABLET PO SCH (19:43)
[2019-10-30] MEDS: Ipratropium/Albuterol Neb 3 ML IH SCH ×7 (00:08→23:43)
[2019-10-30] MEDS: *HR* Heparin 5,000 UNIT/ML VIAL SQ SCH ×2 (05:23→16:27)
[2019-10-30 05:28] LABS: Hemoglobin 10.3 g/dL (11.5-15.4); Mean Corpuscular HGB Conc 30.3 g/dL (31.6-35.5); Mean Corpuscular Hemoglobin 32.4 pg (28.0-33.3); Mean Corpuscular Volume 106.9 fL (83.0-100.0); Mean Platelet Volume 10.1 fL (9.4-12.4); Platelet Count 164 K/mcL (140-400); Red Blood Count 3.18 M/mcL (3.82-4.97); Red Cell Distribution Width 18.2 % (11.5-14.5); White Blood Count 9.4 K/mcL (4.3-11.1)
[2019-10-30 06:04] LABS: Calcium 10.1 mg/dL (8.6-10.3); Potassium 4.7 mEq/L (3.5-5.1)
[2019-10-30] MEDS: Budesonide/Formoterol 160/4.5 1 PUFF INH IH SCH ×2 (07:54→19:23)
[2019-10-30] MEDS: Tiotropium 18 MCG inhalation IH SCH (07:57)
[2019-10-30] MEDS: Famotidine 20 MG TABLET PO SCH ×2 (08:25→21:26)
[2019-10-30] MEDS: Aspirin Enteric Coated 81 MG Tablet PO SCH (08:26)
[2019-10-30] MEDS: Nicotine 14 MG PATCH.TD24 TD SCH (08:26)
[2019-10-30] MEDS: MethylPREDNISolone 40 MG/ML VIAL IVP SCH ×3 (08:26→23:01)
[2019-10-30] MEDS: Fluticasone Propionate Nasal 50 MCG/SPRAY BOTTLE NS SCH (08:28)
[2019-10-30] MEDS: Insulin LISPRO 300 UNITS/3 ML VIAL SQ SCH ×4 (08:29→21:27)
[2019-10-30] MEDS: Azithromycin 500 MG in 0.9 % Sodium Chloride 250 ML IVPB SCH (14:56)
[2019-10-30] MEDS: traZODone 50 MG TABLET PO SCH (21:27)
[2019-10-31 02:07] LABS: Hematocrit 37.6 % (35.3-44.9); Hemoglobin 11.5 g/dL (11.5-15.4); Mean Corpuscular HGB Conc 30.6 g/dL (31.6-35.5); Mean Corpuscular Hemoglobin 32.5 pg (28.0-33.3); Mean Corpuscular Volume 106.2 fL (83.0-100.0); Mean Platelet Volume 10.6 fL (9.4-12.4); Platelet Count 148 K/mcL (140-400); Red Blood Count 3.54 M/mcL (3.82-4.97); Red Cell Distribution Width 18.1 % (11.5-14.5); White Blood Count 9.9 K/mcL (4.3-11.1)
[2019-10-31 02:26] LABS: Calcium 10.7 mg/dL (8.6-10.3); Potassium 4.9 mEq/L (3.5-5.1)
[2019-10-31] MEDS: Ipratropium/Albuterol Neb 3 ML IH SCH ×6 (03:28→23:27)
[2019-10-31] MEDS: *HR* Heparin 5,000 UNIT/ML VIAL SQ SCH ×2 (05:16→17:31)
[2019-10-31] MEDS: Famotidine 20 MG TABLET PO SCH ×2 (08:04→22:05)
[2019-10-31] MEDS: Aspirin Enteric Coated 81 MG Tablet PO SCH (08:05)
[2019-10-31] MEDS: Insulin LISPRO 300 UNITS/3 ML VIAL SQ SCH ×4 (08:06→22:05)
[2019-10-31] MEDS: Tiotropium 18 MCG inhalation IH SCH (08:06)
[2019-10-31] MEDS: Nicotine 14 MG PATCH.TD24 TD SCH (08:06)
[2019-10-31] MEDS: Fluticasone Propionate Nasal 50 MCG/SPRAY BOTTLE NS SCH (08:08)
[2019-10-31] MEDS: Budesonide/Formoterol 160/4.5 1 PUFF INH IH SCH ×2 (08:21→20:02)
[2019-10-31] MEDS: predniSONE 20 MG TABLET PO SCH (09:26)
[2019-10-31] MEDS: traZODone 50 MG TABLET PO SCH (22:05)
[2019-11-01 01:30] LABS: Hematocrit 35.6 % (35.3-44.9); Hemoglobin 10.9 g/dL (11.5-15.4); Mean Corpuscular HGB Conc 30.6 g/dL (31.6-35.5); Mean Corpuscular Hemoglobin 32.4 pg (28.0-33.3); Platelet Count 155 K/mcL (140-400); Red Blood Count 3.36 M/mcL (3.82-4.97); Red Cell Distribution Width 18.3 % (11.5-14.5); White Blood Count 10.4 K/mcL (4.3-11.1)
[2019-11-01 01:46] LABS: Calcium 10.2 mg/dL (8.6-10.3); Magnesium 2.4 mg/dL (1.6-2.6); Potassium 4.5 mEq/L (3.5-5.1)
[2019-11-01] MEDS: Ipratropium/Albuterol Neb 3 ML IH SCH ×6 (03:59→23:51)
[2019-11-01] MEDS: *HR* Heparin 5,000 UNIT/ML VIAL SQ SCH ×2 (05:36→17:11)
[2019-11-01] MEDS: Tiotropium 18 MCG inhalation IH SCH (07:34)
[2019-11-01] MEDS: Budesonide/Formoterol 160/4.5 1 PUFF INH IH SCH ×2 (07:34→20:24)
[2019-11-01] MEDS: Insulin LISPRO 300 UNITS/3 ML VIAL SQ SCH ×4 (07:43→21:08)
[2019-11-01] MEDS: Famotidine 20 MG TABLET PO SCH ×2 (07:44→21:05)
[2019-11-01] MEDS: amLODIPine 5 MG TABLET PO SCH (07:44)
[2019-11-01] MEDS: Isosorbide MONOnitrate (24 HR) 60 MG TAB.ER.24H PO SCH (07:44)
[2019-11-01] MEDS: Nicotine 14 MG PATCH.TD24 TD SCH (07:45)
[2019-11-01] MEDS: Aspirin Enteric Coated 81 MG Tablet PO SCH (07:45)
[2019-11-01] MEDS: predniSONE 20 MG TABLET PO SCH (07:45)
[2019-11-01] MEDS: Fluticasone Propionate Nasal 50 MCG/SPRAY BOTTLE NS SCH (09:55)
[2019-11-01] MEDS: traZODone 50 MG TABLET PO SCH (21:08)
[2019-11-02] MEDS: Ipratropium/Albuterol Neb 3 ML IH SCH ×5 (04:03→20:38)
[2019-11-02 04:39] LABS: Hematocrit 35.4 % (35.3-44.9); Hemoglobin 11.4 g/dL (11.5-15.4); Mean Corpuscular HGB Conc 32.2 g/dL (31.6-35.5); Mean Corpuscular Hemoglobin 32.4 pg (28.0-33.3); Mean Corpuscular Volume 100.6 fL (83.0-100.0); Mean Platelet Volume 10.1 fL (9.4-12.4); Platelet Count 155 K/mcL (140-400); Red Blood Count 3.52 M/mcL (3.82-4.97); Red Cell Distribution Width 17.9 % (11.5-14.5); White Blood Count 10.1 K/mcL (4.3-11.1)
[2019-11-02 04:59] LABS: Calcium 10.3 mg/dL (8.6-10.3); Potassium 3.8 mEq/L (3.5-5.1)
[2019-11-02] MEDS: *HR* Heparin 5,000 UNIT/ML VIAL SQ SCH ×2 (05:37→16:24)
[2019-11-02] MEDS: Tiotropium 18 MCG inhalation IH SCH (07:50)
[2019-11-02] MEDS: Budesonide/Formoterol 160/4.5 1 PUFF INH IH SCH ×2 (07:51→20:38)
[2019-11-02] MEDS: Famotidine 20 MG TABLET PO SCH ×2 (08:01→22:12)
[2019-11-02] MEDS: predniSONE 20 MG TABLET PO SCH (08:01)
[2019-11-02] MEDS: amLODIPine 5 MG TABLET PO SCH (08:02)
[2019-11-02] MEDS: Aspirin Enteric Coated 81 MG Tablet PO SCH (08:02)
[2019-11-02] MEDS: Nicotine 14 MG PATCH.TD24 TD SCH (08:02)
[2019-11-02] MEDS: Isosorbide MONOnitrate (24 HR) 60 MG TAB.ER.24H PO SCH (08:02)
[2019-11-02] MEDS: Fluticasone Propionate Nasal 50 MCG/SPRAY BOTTLE NS SCH (08:03)
[2019-11-02] MEDS: Insulin LISPRO 300 UNITS/3 ML VIAL SQ SCH ×4 (08:04→22:12)
[2019-11-02] MEDS ORDERED: Insulin DETEMIR 100 UNIT/ML X5UNITS SQ ONE (21:54)
[2019-11-02] MEDS: traZODone 50 MG TABLET PO SCH (22:12)
[2019-11-03] MEDS: Ipratropium/Albuterol Neb 3 ML IH SCH ×4 (00:13→11:43)
[2019-11-03] MEDS ORDERED: Insulin LISPRO 300 UNITS/3 ML VIAL SQ ONE (01:19)
[2019-11-03 01:33] LABS: Hematocrit 34.7 % (35.3-44.9); Hemoglobin 11.2 g/dL (11.5-15.4); Mean Corpuscular HGB Conc 32.3 g/dL (31.6-35.5); Mean Corpuscular Hemoglobin 32.7 pg (28.0-33.3); Mean Corpuscular Volume 101.2 fL (83.0-100.0); Mean Platelet Volume 10.3 fL (9.4-12.4); Platelet Count 163 K/mcL (140-400); Red Blood Count 3.43 M/mcL (3.82-4.97); Red Cell Distribution Width 17.8 % (11.5-14.5); White Blood Count 9.5 K/mcL (4.3-11.1)
[2019-11-03 01:55] LABS: Calcium 10.6 mg/dL (8.6-10.3); Potassium 4.1 mEq/L (3.5-5.1)
[2019-11-03] MEDS: *HR* Heparin 5,000 UNIT/ML VIAL SQ SCH (05:31)
[2019-11-03] MEDS: Tiotropium 18 MCG inhalation IH SCH (07:17)
[2019-11-03] MEDS: Budesonide/Formoterol 160/4.5 1 PUFF INH IH SCH (07:17)
[2019-11-03] MEDS: predniSONE 20 MG TABLET PO SCH (08:09)
[2019-11-03] MEDS: Aspirin Enteric Coated 81 MG Tablet PO SCH (08:09)
[2019-11-03] MEDS: amLODIPine 5 MG TABLET PO SCH (08:09)
[2019-11-03] MEDS: Famotidine 20 MG TABLET PO SCH (08:10)
[2019-11-03] MEDS: Isosorbide MONOnitrate (24 HR) 60 MG TAB.ER.24H PO SCH (08:10)
[2019-11-03] MEDS: Nicotine 14 MG PATCH.TD24 TD SCH (08:10)
[2019-11-03] MEDS: Insulin LISPRO 300 UNITS/3 ML VIAL SQ SCH ×2 (08:10→12:11)
[2019-11-03] MEDS: Fluticasone Propionate Nasal 50 MCG/SPRAY BOTTLE NS SCH (08:11)
[2019-11-03 11:54] VITALS: BP 162/97
== END 2019-11-03 13:47 | disposition home health service (06) | DRG 113 ==
LOC: EMEROOARM 11:14 → 3BNU 11:14
PROVIDERS: ADMIT Internal Medicine; ATTEND Internal Medicine

== ENCOUNTER 2022-05-28 12:25 | Inpatient (IN) ==
[2022-05-28] MEDS ORDERED: *HR* FentaNYL (PF) 100 MCG/2 ML VIAL IVP ONE (13:10)
[2022-05-28 14:36] LABS: Basophils % 0.4 %; Eosinophils # 0.2 K/mcL (0.0-0.6); Eosinophils % 2.3 %; Hematocrit 52.8 % (35.3-44.9); Immature Granulocytes % 0.4 % (0-4); Lymphocytes # 2.5 K/mcL (0.6-4.6); Lymphocytes % 30.8 %; Mean Corpuscular HGB Conc 32.2 g/dL (31.6-35.5); Mean Corpuscular Hemoglobin 31.8 pg (28.0-33.3); Mean Corpuscular Volume 98.9 fL (83.0-100.0); Mean Platelet Volume 10.4 fL (9.4-12.4); Monocytes # 0.6 K/mcL (0.0-1.3); Monocytes % 6.7 %; Neutrophils # 4.9 K/mcL (1.6-8.9); Platelet Count 157 K/mcL (140-400); Red Blood Count 5.34 M/mcL (3.82-4.97); Red Cell Distribution Width 13.4 % (11.5-14.5); Segmented Neutrophils % 59.4 %; White Blood Count 8.2 K/mcL (4.3-11.1)
[2022-05-28 14:56] LABS: BUN/Creatinine Ratio 11 (6-26); Blood Urea Nitrogen 11 mg/dL (8-23); Calcium 10.5 mg/dL (8.6-10.3); Carbon Dioxide 28 mEq/L (23-29); Chloride 107 mEq/L (98-107); Glucose 76 mg/dL (70-105); Osmolality,Calculated 290 (280-300); Potassium 5.2 mEq/L (3.5-5.1); Sodium 141 mEq/L (136-145); Troponin I < 0.03 ng/mL (< 0.04)
[2022-05-28] MEDS ORDERED: Naloxone 0.4 MG/ML INJ IVP PRN (16:38)
[2022-05-28] MEDS ORDERED: Ondansetron 4 MG/2 ML VIAL IVP PRN (17:29)
[2022-05-28] MEDS ORDERED: Melatonin 3 MG TABLET PO PRN (17:29)
[2022-05-28] MEDS ORDERED: Ipratropium/Albuterol Neb 3 ML IH PRN (17:53)
[2022-05-28] MEDS ORDERED: Nitroglycerin 0.4 MG TAB.SUBL SL PRN (17:54)
[2022-05-28] MEDS ORDERED: NON-FORMULARY MEDICATION 1 EACH EACH (Potassium Chloride [K-Tab Er] 20 MEQ Tablet.Er) PO SCH (21:00)
[2022-05-28] MEDS: Budesonide/Formoterol 160/4.5 1 PUFF INH IH SCH (21:35)
[2022-05-28] MEDS: traZODone 50 MG TABLET PO SCH (22:47)
[2022-05-28] MEDS: Ringers Solution, Lactated 1,000 ML IVC SCH (22:47)
[2022-05-29 05:38] LABS: Hematocrit 47.2 % (35.3-44.9); Mean Corpuscular Hemoglobin 31.5 pg (28.0-33.3); Mean Corpuscular Volume 98.3 fL (83.0-100.0); Mean Platelet Volume 10.3 fL (9.4-12.4); Platelet Count 148 K/mcL (140-400); Red Cell Distribution Width 13.4 % (11.5-14.5); White Blood Count 7.1 K/mcL (4.3-11.1)
[2022-05-29 05:39] LABS: Hemoglobin 15.1 g/dL (11.5-15.4)
[2022-05-29 05:52] LABS: Calcium 9.7 mg/dL (8.6-10.3)
[2022-05-29] MEDS: Budesonide/Formoterol 160/4.5 1 PUFF INH IH SCH ×2 (07:32→19:14)
[2022-05-29] MEDS: Isosorbide MONOnitrate (24 HR) 60 MG TAB.ER.24H PO SCH (08:21)
[2022-05-29] MEDS: Multivit/Ca/Min/Fe/FA 1 TAB TABLET PO SCH (08:22)
[2022-05-29] MEDS: Metoprolol XL (24 HR) Succ 25 MG TAB.ER.24H PO SCH (08:22)
[2022-05-29] MEDS: Loratadine 10 MG TABLET PO SCH (08:26)
[2022-05-29] MEDS: Ringers Solution, Lactated 1,000 ML IVC SCH (08:27)
[2022-05-29] MEDS: (Roflumilast [Daliresp] 500 MCG Tablet) PO SCH (09:11)
[2022-05-29] MEDS: Tiotropium 10 INH DOSE IH SCH (09:41)
[2022-05-29] MEDS: Fluticasone Propionate Nasal 50 MCG/SPRAY BOTTLE NS SCH (10:13)
[2022-05-29] MEDS: Nicotine 21 MG PATCH.TD24 TD SCH (15:24)
[2022-05-29] MEDS ORDERED: Acetaminophen 325 MG TABLET PO PRN (15:34)
[2022-05-29] MEDS: traZODone 50 MG TABLET PO SCH (22:06)
[2022-05-29] MEDS: Morphine Sulfate 2 MG/ML SYRINGE IVP PRN (22:10)
[2022-05-30] MEDS: Tiotropium 10 INH DOSE IH SCH (07:31)
[2022-05-30] MEDS: Budesonide/Formoterol 160/4.5 1 PUFF INH IH SCH (07:32)
[2022-05-30] MEDS: Nicotine 21 MG PATCH.TD24 TD SCH (09:00)
[2022-05-30] MEDS: Metoprolol XL (24 HR) Succ 25 MG TAB.ER.24H PO SCH (09:01)
[2022-05-30] MEDS: Isosorbide MONOnitrate (24 HR) 60 MG TAB.ER.24H PO SCH (09:01)
[2022-05-30] MEDS: Multivit/Ca/Min/Fe/FA 1 TAB TABLET PO SCH (09:01)
[2022-05-30] MEDS: Loratadine 10 MG TABLET PO SCH (09:01)
[2022-05-30] MEDS: Morphine Sulfate 2 MG/ML SYRINGE IVP PRN (09:02)
[2022-05-30] MEDS: Fluticasone Propionate Nasal 50 MCG/SPRAY BOTTLE NS SCH (09:05)
[2022-05-30] MEDS: (Roflumilast [Daliresp] 500 MCG Tablet) PO SCH (09:06)
[2022-05-30] MEDS ORDERED: *HR* Remifentanil 2 MG VIAL IVP ONE (14:32)
[2022-05-30] MEDS ORDERED: *HR* FentaNYL (PF) 100 MCG/2 ML VIAL ONE (14:32)
[2022-05-30] MEDS ORDERED: *HR* Midazolam HCl 2 MG/2 ML VIAL ONE (14:32)
[2022-05-30] MEDS ORDERED: *HR* Propofol 200 MG/20 ML VIAL IVP ONE (14:32)
[2022-05-30] MEDS ORDERED: Lidocaine HCL 4 ML Topical Solution (Laryng-O-Jet Kit Sterile Pak) TP ONE (14:33)
[2022-05-30] MEDS ORDERED: Lidocaine -MPF 2% 5 ML VIAL ONE (14:33)
[2022-05-30] MEDS ORDERED: *HR* Succinylcholine 200 MG/10 ML VIAL IVP ONE (14:33)
[2022-05-30] MEDS ORDERED: *HR* Phenylephrine 10 MG/ML VIAL ONE (14:33)
[2022-05-30] MEDS ORDERED: Ondansetron 4 MG/2 ML VIAL ONE (14:33)
[2022-05-30] MEDS ORDERED: Vancomycin 1,000 MG VIAL ONE (15:21)
[2022-05-30] MEDS ORDERED: *HR* FentaNYL (PF) 100 MCG/2 ML VIAL IVP PRN (15:31)
[2022-05-30] MEDS ORDERED: Albuterol 2.5 MG/3 ML NEBULIZER IH PRN (15:31)
[2022-05-30] MEDS ORDERED: Acetaminophen IV 1,000 MG/100 ML BAG IVPB PRN (15:31)
[2022-05-30] MEDS ORDERED: Ondansetron 4 MG/2 ML VIAL IVP PRN ×2 (15:31→21:09)
[2022-05-30] MEDS ORDERED: Ipratropium Neb 0.5 MG NEBULIZER IH PRN (15:31)
[2022-05-30] MEDS ORDERED: *HR* Labetalol 20 MG/4 ML SYRINGE IVP PRN (15:31)
[2022-05-30] MEDS ORDERED: *HR* HYDROmorphone PF 0.5 MG/0.5 ML SYRINGE IVP PRN (15:31)
[2022-05-30] MEDS ORDERED: *HR* OxyCODONE Immed Rel 5 MG TABLET PO PRN (15:31)
[2022-05-30] MEDS ORDERED: Heparin 1,000 UNITS/500 mL 500 ML ONE (15:32)
[2022-05-30] MEDS ORDERED: Clindamycin 900 MG/50 ML 900 MG/50 ML IV.SOLN IVPB ONE (16:43)
[2022-05-30] MEDS ORDERED: Ketamine HCL *QUVA* 50mg (1mL) SYRINGE ONE (16:45)
[2022-05-30] MEDS ORDERED: Naloxone 0.4 MG/ML INJ IVP PRN (21:09)
[2022-05-30] MEDS ORDERED: Acetaminophen 325 MG TABLET PO PRN (21:09)
[2022-05-30] MEDS: *HR* OxyCODONE Immed Rel 5 MG TABLET PO PRN (21:36)
[2022-05-30] MEDS: Ringers Solution, Lactated 1,000 ML IVC SCH (22:28)
[2022-05-30] MEDS: *HR* Metformin 500 MG TABLET PO SCH (22:28)
[2022-05-31] MEDS: *HR* HYDROcodone/Acet 5/325 mg TABLET PO PRN ×2 (00:06→13:15)
[2022-05-31] MEDS: Clindamycin 900 MG/50 ML 900 MG/50 ML IV.SOLN IVPB SCH ×2 (00:10→07:43)
[2022-05-31] MEDS ORDERED: *HR* Metoprolol 5 MG/5 ML VIAL IVP PRN (00:15)
[2022-05-31] MEDS ORDERED: Menthol 1 EACH LOZENGE PO PRN (00:17)
[2022-05-31] MEDS: *HR* OxyCODONE Immed Rel 5 MG TABLET PO PRN ×4 (04:49→23:01)
[2022-05-31] MEDS: Ringers Solution, Lactated 1,000 ML IVC SCH (06:02)
[2022-05-31] MEDS: Aspirin 81 MG TAB.CHEW PO SCH (08:44)
[2022-05-31] MEDS: *HR* Metformin 500 MG TABLET PO SCH ×2 (08:44→19:49)
[2022-06-01] MEDS: *HR* OxyCODONE Immed Rel 5 MG TABLET PO PRN ×2 (03:36→16:20)
[2022-06-01 08:28] LABS: ABG Base Excess 3 mEq/L (-2 to 3); ABG HCO3 30 mEq/L (21-27); ABG Oxygen Saturation 94 % (95-98); ABG PCO2 58 mmHg (35-45); ABG PH 7.33 pH Units (7.32-7.45); ABG PO2 80 mmHg (85-104); ABG TCO2 32 mEq/L (20-26)
[2022-06-01] MEDS: Aspirin 81 MG TAB.CHEW PO SCH (08:28)
[2022-06-01] MEDS: *HR* Enoxaparin 40 MG/0.4 ML SYRINGE SQ SCH (08:28)
[2022-06-01] MEDS: *HR* Metformin 500 MG TABLET PO SCH (08:28)
[2022-06-01] MEDS ORDERED: *HR* Metformin 500 MG TABLET PO SCH (17:00)
[2022-06-01 17:14] LABS: Bilirubin,Urine Negative (Negative); Blood,Urine Trace (Negative); Clarity,Urine Clear (Clear); Color,Urine Light-Yellow (Yellow); Glucose,Urine (UA) Normal (Normal); Ketones,Urine Negative (Negative); Leukocyte Esterase,Urine Negative (Negative); Mucus,Urine Few per lpf (None-Few); Nitrite,Urine Negative (Negative); PH,Urine 6.5 pH Units (5.0-8.0); Protein,Urine Negative (Neg-Trace); Specific Gravity,Urine 1.013 (1.010-1.025); Squamous Epithelial Cell,Urine Few per hpf (None-Few); Urobilinogen,Urine Normal (Normal)
[2022-06-01] MEDS ORDERED: Azithromycin 250 MG TABLET PO ONE (20:23)
[2022-06-02] MEDS: *HR* OxyCODONE Immed Rel 5 MG TABLET PO PRN (03:59)
[2022-06-02 05:38] LABS: ABG Base Excess 6 mEq/L (-2 to 3); ABG HCO3 34 mEq/L (21-27); ABG Oxygen Saturation 89 % (95-98); ABG PCO2 65 mmHg (35-45); ABG PH 7.33 pH Units (7.32-7.45); ABG PO2 63 mmHg (85-104); ABG TCO2 36 mEq/L (20-26)
[2022-06-02] MEDS: *HR* Enoxaparin 40 MG/0.4 ML SYRINGE SQ SCH (06:22)
[2022-06-02 06:35] LABS: Hematocrit 41.4 % (35.3-44.9); Mean Corpuscular HGB Conc 31.6 g/dL (31.6-35.5); Mean Corpuscular Hemoglobin 31.3 pg (28.0-33.3); Mean Corpuscular Volume 98.8 fL (83.0-100.0); Mean Platelet Volume 10.6 fL (9.4-12.4); Platelet Count 149 K/mcL (140-400); Red Blood Count 4.19 M/mcL (3.82-4.97); Red Cell Distribution Width 13.2 % (11.5-14.5); White Blood Count 7.9 K/mcL (4.3-11.1)
[2022-06-02 06:39] LABS: Hemoglobin 13.1 g/dL (11.5-15.4)
[2022-06-02 06:56] LABS: BUN/Creatinine Ratio 11 (6-26); Blood Urea Nitrogen 8 mg/dL (8-23); Calcium 10.1 mg/dL (8.6-10.3); Carbon Dioxide 35 mEq/L (23-29); Chloride 101 mEq/L (98-107); Glucose 123 mg/dL (70-105); Osmolality,Calculated 290 (280-300); Sodium 140 mEq/L (136-145)
[2022-06-02] MEDS ORDERED: Ipratropium/Albuterol Neb 3 ML IH ONE (07:17)
[2022-06-02] MEDS ORDERED: Ketorolac 30 MG/ML VIAL IVP ONE (07:19)
[2022-06-02 08:40] LABS: BUN/Creatinine Ratio 10 (6-26); Blood Urea Nitrogen 7 mg/dL (8-23); Calcium 9.9 mg/dL (8.6-10.3); Carbon Dioxide 31 mEq/L (23-29); Chloride 102 mEq/L (98-107); Glucose 122 mg/dL (70-105); Magnesium 1.7 mg/dL (1.6-2.6); Osmolality,Calculated 287 (280-300); Potassium 4.1 mEq/L (3.5-5.1); Sodium 139 mEq/L (136-145)
[2022-06-02] MEDS ORDERED: Azithromycin 250 MG TABLET PO SCH ×2 (09:00→21:00)
[2022-06-02] MEDS ORDERED: Famotidine 20 MG/2 ML VIAL IVP ONE (09:40)
[2022-06-02] MEDS ORDERED: Acetaminophen IV 1,000 MG/100 ML BAG IVPB ONE (09:40)
[2022-06-02] MEDS ORDERED: *HR* FentaNYL (PF) 100 MCG/2 ML VIAL ONE (09:45)
[2022-06-02] MEDS ORDERED: Lidocaine -MPF 2% 5 ML VIAL ONE (09:46)
[2022-06-02] MEDS ORDERED: Ondansetron 4 MG/2 ML VIAL ONE (09:46)
[2022-06-02] MEDS ORDERED: *HR* Succinylcholine 200 MG/10 ML VIAL IVP ONE (09:46)
[2022-06-02] MEDS ORDERED: *HR* Propofol 200 MG/20 ML VIAL IVP ONE (09:48)
[2022-06-02] MEDS ORDERED: Lidocaine HCL 4 ML Topical Solution (Laryng-O-Jet Kit Sterile Pak) TP ONE (09:55)
[2022-06-02] MEDS ORDERED: Clindamycin 900 MG/50 ML 900 MG/50 ML IV.SOLN IVPB ONE (09:58)
[2022-06-02] MEDS ORDERED: Ringers Solution, Lactated 1,000 ML IVC SCH ×2 (10:00→12:41)
[2022-06-02] MEDS ORDERED: *HR* HYDROmorphone PF 0.5 MG/0.5 ML SYRINGE IVP PRN (11:30)
[2022-06-02] MEDS ORDERED: Ondansetron 4 MG/2 ML VIAL IVP PRN ×2 (12:41)
[2022-06-02] MEDS ORDERED: Acetaminophen 325 MG TABLET PO PRN (12:41)
[2022-06-02] MEDS ORDERED: *HR* OxyCODONE Immed Rel 5 MG TABLET PO PRN ×3 (12:41→23:00)
[2022-06-02] MEDS ORDERED: Menthol 1 EACH LOZENGE PO PRN (12:41)
[2022-06-02] MEDS ORDERED: *HR* Metoprolol 5 MG/5 ML VIAL IVP PRN (12:41)
[2022-06-02] MEDS ORDERED: *HR* HYDROcodone/Acet 5/325 mg TABLET PO PRN ×2 (12:41)
[2022-06-02] MEDS ORDERED: Naloxone 0.4 MG/ML INJ IVP PRN ×2 (12:41)
[2022-06-02] MEDS ORDERED: methylPREDNISolone 125 MG/2 ML VIAL IVP ONE (17:13)
[2022-06-02] MEDS: *HR* Metformin 500 MG TABLET PO SCH (18:48)
[2022-06-02] MEDS ORDERED: Clindamycin 900 MG/50 ML 900 MG/50 ML IV.SOLN IVPB SCH (19:00)
[2022-06-02] MEDS ORDERED: Azithromycin 500 MG in 0.9 % Sodium Chloride 250 ML IVPB SCH (19:00)
[2022-06-02] MEDS: Ringers Solution, Lactated 1,000 ML IVC SCH ×2 (20:17→20:51)
[2022-06-02] MEDS ORDERED: Ipratropium/Albuterol Neb 3 ML IH PRN (23:00)
[2022-06-02] MEDS ORDERED: traZODone 50 MG TABLET PO SCH (23:15)
[2022-06-03] MEDS: methylPREDNISolone 125 MG/2 ML VIAL IVP SCH ×2 (00:36→05:53)
[2022-06-03] MEDS: *HR* Metformin 500 MG TABLET PO SCH (07:58)
[2022-06-03] MEDS ORDERED: Aspirin 81 MG TAB.CHEW PO SCH (09:00)
[2022-06-03] MEDS ORDERED: Acetaminophen 325 MG TABLET PO PRN (10:50)
[2022-06-03] MEDS ORDERED: Menthol 1 EACH LOZENGE PO PRN (10:50)
[2022-06-03] MEDS ORDERED: Naloxone 0.4 MG/ML INJ IVP PRN (10:50)
[2022-06-03] MEDS ORDERED: Ipratropium/Albuterol Neb 3 ML IH PRN (10:50)
[2022-06-03] MEDS ORDERED: *HR* HYDROcodone/Acet 5/325 mg TABLET PO PRN (10:50)
[2022-06-03] MEDS ORDERED: Ondansetron 4 MG/2 ML VIAL IVP PRN (10:50)
[2022-06-03] MEDS ORDERED: *HR* Metoprolol 5 MG/5 ML VIAL IVP PRN (10:50)
[2022-06-03] MEDS ORDERED: Ringers Solution, Lactated 1,000 ML IVC SCH (10:50)
[2022-06-03] MEDS ORDERED: methylPREDNISolone 125 MG/2 ML VIAL IVP SCH (12:00)
[2022-06-03 12:40] LABS: Hemoglobin 12.5 g/dL (11.5-15.4)
[2022-06-03 12:41] LABS: Hematocrit 38.4 % (35.3-44.9); Mean Corpuscular HGB Conc 32.6 g/dL (31.6-35.5); Mean Corpuscular Hemoglobin 31.3 pg (28.0-33.3); Mean Platelet Volume 10.6 fL (9.4-12.4); Platelet Count 162 K/mcL (140-400); Red Cell Distribution Width 12.6 % (11.5-14.5); White Blood Count 7.6 K/mcL (4.3-11.1)
[2022-06-03 12:56] LABS: BUN/Creatinine Ratio 17 (6-26); Blood Urea Nitrogen 12 mg/dL (8-23); Calcium 10.7 mg/dL (8.6-10.3); Carbon Dioxide 29 mEq/L (23-29); Chloride 102 mEq/L (98-107); Glucose 157 mg/dL (70-105); Osmolality,Calculated 293 (280-300); Sodium 140 mEq/L (136-145)
[2022-06-03] MEDS ORDERED: Dextrose Gel 15 GM/37.5 ML TUBE PO PRN ×2 (16:00)
[2022-06-03] MEDS ORDERED: D5% in Water 1,000 ML IVC PRN (16:00)
[2022-06-03] MEDS ORDERED: *HR* Dextrose 50 % in Water (Syg) 50 ML SYRINGE IVP PRN (16:00)
[2022-06-03] MEDS ORDERED: *HR* Metformin 500 MG TABLET PO SCH (17:00)
[2022-06-03] MEDS: *HR* OxyCODONE Immed Rel 5 MG TABLET PO PRN (18:18)
[2022-06-03] MEDS: Insulin LISPRO 300 UNITS/3 ML VIAL SUBQ SCH ×2 (20:02→20:13)
[2022-06-03] MEDS: Azithromycin 500 MG in 0.9 % Sodium Chloride 250 ML IVPB SCH (20:11)
[2022-06-03] MEDS: traZODone 50 MG TABLET PO SCH (20:20)
[2022-06-04] MEDS: Insulin LISPRO 300 UNITS/3 ML VIAL SUBQ SCH ×4 (08:37→20:45)
[2022-06-04] MEDS ORDERED: Aspirin 81 MG TAB.CHEW PO SCH (09:00)
[2022-06-04] MEDS: predniSONE 20 MG TABLET PO SCH (09:41)
[2022-06-04 09:53] LABS: Basophils % 0.1 %; Eosinophils % 0.2 %; Hematocrit 38.4 % (35.3-44.9); Hemoglobin 12.3 g/dL (11.5-15.4); Immature Granulocytes % 0.3 % (0-4); Lymphocytes # 2.2 K/mcL (0.6-4.6); Lymphocytes % 21.9 %; Mean Corpuscular Hemoglobin 31.5 pg (28.0-33.3); Mean Corpuscular Volume 98.5 fL (83.0-100.0); Mean Platelet Volume 10.4 fL (9.4-12.4); Monocytes # 0.8 K/mcL (0.0-1.3); Monocytes % 7.7 %; Neutrophils # 6.8 K/mcL (1.6-8.9); Platelet Count 169 K/mcL (140-400); Segmented Neutrophils % 69.8 %; White Blood Count 9.8 K/mcL (4.3-11.1)
[2022-06-04 10:07] LABS: Albumin 3.5 g/dL (3.5-5.7); Albumin/Globulin Ratio 1.5 (1.1-2.2); Bilirubin,Total 0.7 mg/dL (0.3-1.0); Calcium 10.2 mg/dL (8.6-10.3); Globulin 2.3 g/dL (2.4-3.5); Potassium 3.8 mEq/L (3.5-5.1); Total Protein 5.8 g/dL (6.4-8.9)
[2022-06-04] MEDS: Nicotine 21 MG PATCH.TD24 TD SCH (13:43)
[2022-06-04] MEDS: Metoprolol XL (24 HR) Succ 25 MG TAB.ER.24H PO SCH (13:43)
[2022-06-04] MEDS: Azithromycin 500 MG in 0.9 % Sodium Chloride 250 ML IVPB SCH (18:30)
[2022-06-04] MEDS: traZODone 50 MG TABLET PO SCH (20:44)
[2022-06-05 07:02] LABS: Hematocrit 37.6 % (35.3-44.9); Mean Corpuscular HGB Conc 31.9 g/dL (31.6-35.5); Mean Corpuscular Hemoglobin 31.3 pg (28.0-33.3); Mean Corpuscular Volume 98.2 fL (83.0-100.0); Mean Platelet Volume 10.7 fL (9.4-12.4); Platelet Count 166 K/mcL (140-400); Red Blood Count 3.83 M/mcL (3.82-4.97); Red Cell Distribution Width 12.8 % (11.5-14.5); White Blood Count 7.1 K/mcL (4.3-11.1)
[2022-06-05 07:48] VITALS: BP 174/94; PULSE 63; TEMP 97.6; O2SAT 96
[2022-06-05 07:50] LABS: BUN/Creatinine Ratio 17 (6-26); Blood Urea Nitrogen 12 mg/dL (8-23); Calcium 9.8 mg/dL (8.6-10.3); Carbon Dioxide 36 mEq/L (23-29); Chloride 104 mEq/L (98-107); Glucose 92 mg/dL (70-105); Osmolality,Calculated 293 (280-300); Potassium 4.1 mEq/L (3.5-5.1); Sodium 142 mEq/L (136-145)
[2022-06-05] MEDS: Metoprolol XL (24 HR) Succ 25 MG TAB.ER.24H PO SCH (08:13)
[2022-06-05] MEDS: predniSONE 20 MG TABLET PO SCH (08:14)
[2022-06-05] MEDS: Nicotine 21 MG PATCH.TD24 TD SCH (08:14)
[2022-06-05] MEDS: *HR* OxyCODONE Immed Rel 5 MG TABLET PO PRN (08:14)
[2022-06-05] MEDS: Insulin LISPRO 300 UNITS/3 ML VIAL SUBQ SCH (09:17)
== END 2022-06-05 12:00 | disposition home health service (06) | DRG 321 ==
LOC: EMEROOARM 12:25 → 3BNU 12:25 → SUATTDRO 16:00 → 3BNU 18:37 → 4WAOSI 05-30 17:51 → SUATTDRO 05-31 19:28 → ICNU 06-02 19:50 → 4WAOSI 06-03 16:14
PROVIDERS: ADMIT Student in an Organized Health Care Education/Training Program; ATTEND Internal Medicine